=== PATIENT | male | born 1955 | race American Indian/Alaskan Native ===

== ENCOUNTER 2024-08-19 08:03 | Inpatient (IN) | payer BC, OTHER ==
[2024-08-19] VITALS (20 sets, daily range): BP systolic 103–127; BP diastolic 62–88
[~2024-08-19] VITALS: Ht 170.2 cm; Wt 63.1 kg
[~2024-08-19 08:03] MED LIST: ASPIRIN EC81 MG PO; GLIPIZIDE ER10 MG PO; GLUCOPHAGE1000 MG PO; LISINOPRIL10 MG PO; OMEGA-31000 MG PO; VITAMIN D350 MC3 SUB-Q
[2024-08-19] MEDS ORDERED: IBUPROFEN600 MG PO (08:09)
[2024-08-19] MEDS ORDERED: dilTIAZem HCL 25 MG/5 ML VIAL IV ONE (08:15)
[2024-08-19] MEDS ORDERED: DILTIAZEM HCl/D5W 125 ML IV SCH (08:15)
[2024-08-19 08:20] LABS: HEMOGLOBIN 11.7 g/dL (12.0-18.0); MCH 25.6 (27-36)
[2024-08-19 08:23] LABS: HEMATOCRIT 35.5 % (35.0-50.0); MCHC 32.8 g/dl (30-36); PLATELET COUNT 366 K/uL (140-440); RBC 4.56 M/ul (4.3-5.7); RDW 13.6 (10.5-15.0)
[2024-08-19 08:36] LABS: LYMPHOCYTES, MANUAL DIFF 5; NEUTROPHILS, MANUAL DIFF 95
[2024-08-19 08:38] LABS: ALBUMIN 1.7 g/dL (3.4-5.0); ALBUMIN/GLOBULIN RATIO 0.29 (1.1-2.4); ANION GAP 15.9 (7-21); BILIRUBIN, TOTAL 0.6 ng/dL (0.2-1.0); BUN/CREATININE RATIO 42.65 (6.0-28.6); CALCIUM 8.6 mg/dL (8.5-10.1); CREATININE, SERUM 1.43 mg/dL (0.70-1.30); POTASSIUM 3.9 mmol/L (3.5-5.1); PROTEIN, TOTAL 7.5 g/dL (6.4-8.2)
[2024-08-19] MEDS ORDERED: CEFEPIME HCL/D5W 2 GM/100 ML PIGGYBACK IV ONE (09:45)
[2024-08-19] MEDS ORDERED: GABAPENTIN100 MG PO (09:56)
[2024-08-19] MEDS ORDERED: ROSUVASTATIN CAL5 MG PO (09:57)
[2024-08-19] MEDS ORDERED: METFORMIN HCL500 M1 PO (09:57)
[2024-08-19] MEDS ORDERED: DEXTROSE 50% 50 ML SYR IV PRN ×2 (10:30)
[2024-08-19] MEDS ORDERED: ondansetron HCL 4 MG/2 ML VIAL IV PRN (10:30)
[2024-08-19] MEDS ORDERED: IBLOOD GLUCOSE TEST STRIP 1 EA TEST XX PRN (10:30)
[2024-08-19] MEDS ORDERED: ACETAMINOPHEN 325 MG TAB PO PRN (10:30)
[2024-08-19] MEDS ORDERED: DEXTROSE 5% 1,000 ML IV PRN (10:30)
[2024-08-19] MEDS ORDERED: SODIUM CHLORIDE 0.9% 1,000 ML IV SCH (10:30)
[2024-08-19] MEDS ORDERED: bisacodyL 10 MG SUPP PR PRN (10:30)
[2024-08-19] MEDS ORDERED: GLUCAGON,HUMAN RECOMBINANT 1 MG/ML VIAL SUB-Q PRN (10:30)
--- NOTE | 2024-08-19 10:51 | NUR ---
68 YR OLD MALE PATIENT ADMITTED TO CCU FROM ER VIA STRETCHER WITH DX OF AFIB RVR, DIABETIC FOOT ULCER. HX OF DIABETES. PATIENT HAS BEEN ILL FOR AT LEAST THE PAST COUPLE OF WEEKS. STATES HE REALL HASN'T FEEL WELL SINCE MID . UPON ADMIT TO CCU PATIENT IS ALERT AND ORIENTED. FOLLOWING COMMANDS W/O DELAY. MONITOR SHOWS NSR. CARDIZEM ON HOLD FOR NOW. ADMISSION PROCESS STARTED. FAMILY MEMBERS ARE IN ROOM.
--- NOTE | 2024-08-19 11:00 | NUR ---
ACCUCHECK-270. PATIENT SAID HE HAS NOT BEEN ROUTINLY CHECKING HIS BLOOD SUGARS. C/O PAIN IN LEFT FOOT, RATES 9/10. STATES THIS IS HOW THE PAIN HAS BEEN AT HOME. HE SAID HE HAS BEEN TAKING MOTRIN AND TYLENOL. IVF INFUSING AT 100 ML/HR. CARDIZEM REMAINS ON HOLD. IS IN NSR.
[2024-08-19] MEDS ORDERED: INSULIN LISPRO 100 UNIT/ML ML SUB-Q SCH (12:00)
[2024-08-19] MEDS ORDERED: PHARMACY RENAL DOSE ADJUSTMENT 1 DOSE MISC PO SCH (12:00)
[2024-08-19] MEDS ORDERED: IBLOOD GLUCOSE TEST STRIP 1 EA TEST VI SCH (12:00)
--- NOTE | 2024-08-19 12:00 | NUR ---
SITTING UP IN BED FOR LUNCH. DENIES NAUSEA. REGULAR INSULIN 7 UNITS SQ GIVEN.
--- NOTE | 2024-08-19 12:30 | NUR ---
TOOK LUNCH WELL. STATES HE DOES FEEL BETTER NOW. FAMILY REMAIN IN ROOM. PATEINT RESTING WITH HOB ELEVATED. IS W/O C/O.
--- NOTE | 2024-08-19 12:50 | NUR ---
MONITOR SHOW NSR TO AFIB HR 110-128. CARDIZEM GTT RESTARTED AT 5 MG/HR. DENIES CHEST PAIN OR INCREASE SHORTNESS OF BREATH.
--- NOTE | 2024-08-19 13:15 | NUR ---
CARDIZEM GTT INCREASED TO 10 MG/HR. REMAINS IN AFIB RVR.
--- NOTE | 2024-08-19 13:50 | NUR ---
MONITOR TONY NSR, CARDIZEM GTT AT TO 5 MG HR.
--- NOTE | 2024-08-19 13:56 | NUR ---
RESTING NOW. CARDIZEM GTT INFUSING AT 5 MG/HR. NOW IN NSR.
[2024-08-19] MEDS ORDERED: HYDROCODONE/ACETA 5/325 TAB PO PRN (15:15)
[2024-08-19] MEDS ORDERED: CEFEPIME HCL/D5W 1 GM/100 ML PIGGYBACK IV SCH (15:30)
[2024-08-19 15:45] LABS: TSH, 3RD GENERATION 1.191 uIU/mL (0.358-3.740)
--- NOTE | 2024-08-19 16:00 | NUR ---
ORDERS RECIEVED FOR STAT MRI OF LEFT FOOT. TO MRI VIA MRI STRETCHER. WARP TYING MACHINE TENDER AND RN WITH PATIENT.
[2024-08-19] MEDS ORDERED: LANTUS SOL100 UNIT/1 SUB-Q (16:34)
--- NOTE | 2024-08-19 16:50 | NUR ---
Spoke with pt and his and two sisters. Pt was unable to answer questions correctly. Pt stating he is doing well and walks without problems. Family are shaking their heads, "no". At this point I asked pt if it is ok if a speak with his and sisters and he agrees. Per , pt has had a blister on is foot for several weeks. He would not admit it was worsening. She made attempts to bring him to the hospital over the last week and he refused. Room is foul smelling due to the wound. , today called the ambulance. Per , pt has not been able to walk or care for self in a week. Sisters are in agreement. They state they all have diabetes. Sisters state they follow plan for diabetes but pts does not. Family want to discuss placement to a SNF on discharge of this pt. Let them know he is going for an MRI and this will tell us more about discharge. Family do not want to use the straight line edger in [facility]. They would like to use one in [place] the rest of the family use if needed. Per their house is not set up for disability. They do not have hand rails and they have steps. When pt was walking he used the khanna to hold onto. He does not have any DME. and pt are both working and she denies any finacial issues. DC plan at this time is pending. I will fu with them tomorrow. I texted Dr. Sarabia, if pt needs podiatry, the family are refusing [place] organizational development specialist. He replied, they are calling Dr. Renteria from ortho for an emergency consult.
--- NOTE | 2024-08-19 17:00 | NUR ---
RETURN TO ROOM 130. ORDERS RECEIVED TO CONSULT DR BOYLE. PRISCILA 281. ORDERS RECIEVED TO GIVE HALF TO SS DOSE.
[2024-08-19] MEDS ORDERED: HYDROCHLOROTHIA25 MG PO (17:04)
[2024-08-19] MEDS ORDERED: SALINE NOSE SPR45 ML NAS (17:09)
[2024-08-19] MEDS ORDERED: KETOROLAC TROMETHAMINE 30 MG/ML VIAL ONE (18:05)
[2024-08-19] MEDS ORDERED: propofoL 200 MG/20 ML VIAL ONE ×2 (18:05→18:50)
[2024-08-19] MEDS ORDERED: METOCLOPRAMIDE HCL 10 MG/2 ML SDV ONE (18:05)
[2024-08-19] MEDS ORDERED: LACTATED RINGER'S 1,000 ML IV ONE ×3 (18:05→19:14)
[2024-08-19] MEDS ORDERED: fentaNYL citrate 100 MCG/2 ML VIAL ONE (18:05)
[2024-08-19] MEDS ORDERED: ROCURONIUM BROMIDE 50 MG/5 ML SYR ONE (18:05)
[2024-08-19] MEDS ORDERED: SUGAMMADEX SODIUM 200 MG/2 ML ML ONE (18:05)
[2024-08-19] MEDS ORDERED: DEXAMETHASONE SOD PHOS 4 MG/ML VIAL ONE (18:05)
[2024-08-19] MEDS ORDERED: MIDAZOLAM HCL 2 MG/2 ML VIAL ONE (18:05)
[2024-08-19] MEDS ORDERED: ondansetron HCL 4 MG/2 ML VIAL ONE (18:05)
[2024-08-19] MEDS ORDERED: SUCCINYLCHOLINE IN 0.9% NACL 200 MG/10 ML SYRINGE ONE (18:05)
[2024-08-19] MEDS ORDERED: FAMOTIDINE 20 MG/ 2 ML VIAL ONE (18:06)
[2024-08-19] MEDS ORDERED: LIDOCAINE HCL 4% 5 ML AMP ONE (18:06)
[2024-08-19] MEDS ORDERED: CloNIDine HCl/Pf 1,000 MCG/10 ML VIAL ONE (18:07)
[2024-08-19] MEDS ORDERED: LIDOCAINE HCL 2% 5 ML SDV ONE (18:07)
[2024-08-19] MEDS ORDERED: BUPIVACAINE HCL 0.5% 30 ML VIAL ONE (18:07)
[2024-08-19] MEDS ORDERED: BUPIVACAINE 0.75% IN DEXTROSE 2 ML AMP ONE (18:07)
[2024-08-19 18:17] LABS: ABO O; RH POSITIVE
[2024-08-19] MEDS ORDERED: LIDOCAINE 2% VISCOUS 6 ML SYR ONE (18:18)
--- NOTE | 2024-08-19 18:40 | NUR ---
TO OR VIA BED. LR TKO ON STRAIGHT TUBING HANGING. CEFEPIME 1 GRAM INFUSING.
[2024-08-19] MEDS ORDERED: DIGOXIN 500 MCG/2 ML AMP ONE (18:50)
[2024-08-19] MEDS ORDERED: HYDROCORTISONE SOD SUCCINATE 100 MG/2 ML VIAL ONE (18:50)
[2024-08-19] MEDS ORDERED: OXYCODONE HCL 5 MG TAB PO PRN (19:00)
[2024-08-19 19:03] LABS: ABO O; RH POSITIVE
[2024-08-19 19:04] LABS: ANTIBODY SCREEN NEGATIVE; IS CROSSMATCH COMPATIBLE
[2024-08-19] MEDS ORDERED: ePHEDrine sulfate 50 MG/ML AMP ONE (19:17)
--- NOTE | 2024-08-19 19:30 | NUR ---
REPORT RECEIVED FROM DANIELLE ARANGO. PATIENT IN RECOVERY.
--- NOTE | 2024-08-19 19:30 | NUR ---
REPORT TO NEXT SHIFT.
--- NOTE | 2024-08-19 19:48 | NUR ---
08/19/241947 Chikis Thrasher 1928: PT ARRIVES TO CCU ROOM 130 FOR PACU RECOVERY. HE IS NOT RESPONSIVE TO ANY STIMULI. HE HAS AN ORAL AIRWAY IN PLACE WITH AN ACTIVE JAW THRUST BEING PERFORMED BY UNLOADER, PASSED OFF TO CCU RN. JADIEL 1933: PT REMOVES UNRESPONSIVE TO STIMULI. JAW THRUST REMAINS IN PLACE WELL ORAL AIRWAY. JADIEL 1938: UNLOADER PREPS PT FOR POST OPERATIVE BLOCKS. JAW THRUST STILL IN PLACE. HIS RR HAS SLOWED. PT IS BREATING VERY SLOW AND SHALLOW.
--- NOTE | 2024-08-19 20:27 | NUR ---
REPORT RECEIVED FROM MACHINE SPRING FORMER, SEN. PATIENT IS RESTING IN BED, LETHARGIC BUT OPENS EYES TO NAME AND ANSWERS QUESTIONS. CONTINUES TO HAVE INTERMITTENT APNEIC PERIODS. REVIEWED WITH DR. ARMSTRONG, ORDER RECEIVED FOR BIPAP IF NEEDED. RT NOTIFIED. AT THIS TIME, RN AT BEDSIDE MONITORING PATIENT. PATIENT WAKES AND ASKS QUESTIONS ABOUT SURGERY; REQUESTED TO LOOK AT RLE. ASSISTED WITH VIEWING HIS LEG, EXPLAINED THAT THE DRESSING NEEDS TO STAY IN PLACE BUT PATIENT STATED, "IT LOOKS GOOD" AND ASKS WHEN HE WILL GET A PROSTHETIC. REVIEWED POC AND UPCOMING WASH OUT PROCEDURE. PATIENT VERBALIZED UNDERSTANDING. CALL LIGHT IN REACH. BED EXIT ALARM ON FOR SAFETY.
[2024-08-19] MEDS ORDERED: MELATONIN 3 MG TAB PO PRN (21:00)
[2024-08-19] MEDS ORDERED: GABAPENTIN 100 MG CAP PO SCH (21:00)
[2024-08-19] MEDS ORDERED: INSULIN GLARGINE-YFGN 100 UNIT/ML ML SUB-Q SCH (21:00)
[2024-08-19] MEDS ORDERED: ATORVASTATIN 10 MG TAB PO SCH (21:00)
[2024-08-19] MEDS ORDERED: SENNOSIDES 1 TAB PO SCH (21:00)
--- NOTE | 2024-08-19 21:22 | NUR ---
PO HS MEDICATIONS HELD AT THIS TIME. PATIENT REMAINS DROWSY POST-OPERATIVELY.
--- NOTE | 2024-08-19 22:05 | NUR ---
IV ABX INFUSING. O2 SAT 100% ON 3L NC. DECREASED FLOW TO 2L. PATIENT ROUSES TO NAME BUT EASILY FALLS ASLEEP. DENIES PAIN AT THIS TIME. BED EXIT ALARM ON FOR SAFETY.
--- NOTE | 2024-08-19 23:44 | NUR ---
ROUNDING ON PATIENT, HE IS ALERT ASKED FOR TV REMOTE, ADJUSTED HIS PILLOW UNDER LEFT STUMP POST OP, HE DOES NOT VERBALIZE ANY PAIN OR NAUSEA, HIS V/S ARE STABLE, IN NSR. NO DRAINAGE NOTED ON ZEINA WRAP AT THIS TIME.
[2024-08-20] VITALS (11 sets, daily range): BP systolic 94–120; BP diastolic 60–69
--- NOTE | 2024-08-20 00:18 | NUR ---
PATIENT WAKES EASILY TO NAME AND OPENS EYES. ABLE TO STAY AWAKE DURING CONVERSATION. TOOK SIPS OF WATER AND TOLERATED WELL. ADMINISTERED HS MEDICATIONS. PATIENT C/O 8/10 ACHING PAIN. MEDICATED FOR PAIN PER EMAR. DOPPLER PULSE AUSCULATED ON LEFT LEG AND R PEDAL PULSE. RIGHT POST TIBIAL PULSE PALPATED BUT WEAK. DRESSING REMAINS CDI. PATIENT DENIES OTHER NEEDS OR CONCERNS. CALL LIGHT IN REACH WITH BED EXIT ALARM ON.
--- NOTE | 2024-08-20 01:30 | NUR ---
PATIENT ASSISTED WITH REPOSITIONING IN BED. WISHES TO SLEEP ON HIS STOMACH. EDUCATION PROVIDED ON TELEMETRY MONITORING. REPORTS PAIN IN STARTING TO IMPROVE AFTER PO MEDICATION. WARM BLANKET PROVIDED. DENIES OTHER NEEDS AT THIS TIME.
--- NOTE | 2024-08-20 02:10 | NUR ---
PATIENT WAKES TO DOPE EDGER IN ROOM. NEW BAG IVF HUNG. COTTER CATHETER REMAINS PATENT; DRAINING CLEAR YELLOW URINE. PATIENT REPORTS PAIN MEDICATION HELPED. CURRENTLY RATING PAIN AT 4/10 WHICH IS TOLERABLE AT THIS TIME. DENIES NEED FOR FURTHER PAIN INTERVENTION. EDUCATION PROVIDED ON NOTIFYING NURSING STAFF ON ANY INCREASE IN PAIN. DENIES OTHER NEEDS OR CONCERNS AT THIS TIME. CALL LIGHT IN REACH. DRESSING ON LLE REMAINS CDI.
[2024-08-20 05:23] LABS: BASOPHILS 0.2 % (0-2); HEMATOCRIT 24.4 % (35.0-50.0); HEMOGLOBIN 8.1 g/dL (12.0-18.0); LYMPHOCYTES 3.2 % (24-44); MCH 25.8 (27-36); MCHC 33.1 g/dl (30-36); MONOCYTES 3.9 % (0-12); NEUTROPHILS 92.7 % (39-80); PLATELET COUNT 272 K/uL (140-440); RBC 3.13 M/ul (4.3-5.7); RDW 13.7 (10.5-15.0)
[2024-08-20 05:33] LABS: ANION GAP 9.4 (7-21); BUN/CREATININE RATIO 51.32 (6.0-28.6); CALCIUM 7.9 mg/dL (8.5-10.1); CREATININE, SERUM 1.13 mg/dL (0.70-1.30); POTASSIUM 4.4 mmol/L (3.5-5.1)
[2024-08-20 05:38] LABS: SMEAR REVIEW BLOOD SEE COMMENTS
--- NOTE | 2024-08-20 06:11 | NUR ---
PATIENT WOKE EASILY TO THIS RN IN ROOM. INITIALLY DENIED PAIN BUT HE WOKE MORE AND MOVED AROUND, HE ENDORSED 5/10 ACHING PAIN IN HIS LLE. MEDICATED WITH OXYCODONE PER EMAR. PATIENT STARED AT LEG. ASKED HOW HE IS FEELING ABOUT IT, PATIENT SEEMS TO BE IN GOOD SPIRITS AND ACCEPTING AT THIS TIME. IV ABX INFUSING. DENIES OTHER NEEDS OR CONCERNS AT THIS TIME.
--- NOTE | 2024-08-20 07:18 | OR ---
[facility] [address] [place] [address] Signed DATE OF OPERATION: 08/19/2024 SURGEON: Sarah Renteria MD PREOPERATIVE DIAGNOSIS: Left foot gangrene with sepsis. POSTOPERATIVE DIAGNOSIS: Left foot gangrene with sepsis. PROCEDURE PERFORMED: Left below-knee amputation, alex. COPY ROOM TECHNICIAN: Florence Vaughn PA-C. Florence was present and critical for all portions of procedure. ANESTHESIA: Spinal. BLOOD LOSS: 200 mL. TOURNIQUET TIME: Zero. SPECIMEN: Lower extremity was sent to Pathology. BRIEF HISTORY: Dayami is a 68-year-old gentleman with gangrene to his foot after treating it with a bandage and some sort of cream that appears to have burned the skin. [place] [address] and relatively nontoxic. However, I felt he was going get sick fairly quickly. We discussed an emergent alex BKA. He elected to proceed once the consent was obtained, he was taken to the operating room after adequate anesthesia was placed on operating room table. All downside pressure points were well padded. A well-padded proximal thigh tourniquet was placed. The foot was then covered with a tourniquet bag and the leg was prepped and draped in a standard sterile fashion. A standard BK amputation was marked out on the skin with a posterior flap. The skin was incised circumferentially and deep dissection was taken down around the tibia and the Electronically Signed By: SARAH RENTERIA MD 08/20/24 0718 PATIENT NAME: DAYAMI ROMERO OPERATIVE REPORT DATE OF : 59 REPORT #: [id number] PHYSICIAN: SARAH RENTERIA MD PCP: JOYCE BLACKWELL PAC REPORT IS CONFIDENTIAL AND NOT TO BE RELEASED WITHOUT AUTHORIZATION [facility] [address], [place] [address] Signed fibula. Both were cut with the soft and using the amputation knife. The lower extremity was removed with all blood vessels being clamped as we went. Once this was completed, the lower extremity was passed off the table. The bleeding was then controlled using a combination of clamps and cautery. We then used individual 2-0 silk ties to tie off all of the bleeders throughout. The bleeding was completely stopped at this portion of the procedure. We then irrigated the entire stump, soft tissue and bone with one bottle of Surgiphor followed by 2 L of normal saline. Again, the stump was inspected for bleeding and no further bleeders were found. No areas of necrosis or infection were noted. The stump was then packed with saline soaked Kerlix sponges followed by dry sponges. This was then covered with ABDs, Kerlix, roller gauze and an Glen wrap. He tolerated the procedure well. All sponge, needle, and instrument counts were correct. Sarah Renteria MD BA/ANSON /[id number] Copies: ~ Electronically Signed By: SARAH RENTERIA MD 08/20/24 0718 PATIENT NAME: DAYAMI ROMERO OPERATIVE REPORT DATE OF : 59 REPORT #: [id number] PHYSICIAN: SARAH RENTERIA MD PCP: JOYCE BLACKWELL PAC REPORT IS CONFIDENTIAL AND NOT TO BE RELEASED WITHOUT AUTHORIZATION
--- NOTE | 2024-08-20 08:39 | NUR ---
PATIENT IS LYING IN BED WITH WITH HOB ELEVATED. PATIENT IS WATCHING TV WITH HIS BREAKFAST TRAY SET UP IN FRONT OF THE PATIENT. PATIENT WITH A VISITOR IN THE ROOM AT THIS TIME. 0800 AND 0900 MEDICATIONS ADMINISTERED PER THE EMAR. VITAL SIGNS TAKEN AND DOCUMENTED IN THE CHART. BLINDS ARE OPEN. PATIENT STATED NO FURTHER NEEDS AT THIS TIME. CALL LIGHT AND PERSONAL BELONGINGS ARE WITHIN REACH.
[2024-08-20] MEDS ORDERED: FLU VACC TS2024(65UP)/MF59C/PF 1 EACH SYR IM SCH (09:00)
--- NOTE | 2024-08-20 09:17 | NUR ---
Assessment complete. Patient sitting up in bed A+O, visitor at bedside. States no pain at this time. HRR, LSC, Bowel tones active. CMS intact. Dressing to LBKA C/D/I, full ROM noted. IVF infusing WNL. Updated on POC for day, pt agreeable. Call light in reach.
--- NOTE | 2024-08-20 09:28 | NUR ---
UR CLINICAL REVIEW: [facility]-MEETS INPT FOR JOSE:AMPUTATION ABOVE OR BELOW KNEE GUIDELINE AND ATRIAL FIBRILLATION GUIDELINE [facility] PPO INPT 08/19/24 @ 1031 ORDER MATCHES REG WILL SEND CLINICALS VIA RIGHTFAX FOR AUTH IF REQUESTED. PLAN FOR SNF AT [place]. 08/22/24
--- NOTE | 2024-08-20 09:43 | NUR ---
VISITED DURING SPIRITUAL CARE ROUNDS. PT EATING BREAKFAST. WILL RETURN CIRCUMSTANCES ALLOW.
--- NOTE | 2024-08-20 09:50 | NUR ---
Noted HR 35, patient asymptomatic with the bradycardia, updated MD who gives verbal order for stat EKG. Patient assessed with no needs at this time
--- NOTE | 2024-08-20 10:10 | NUR ---
RN GAVE PATIENT TWO WARM BLANKETS AT THIS TIME. RN NOTIFIED OF THE PREVIOUS TEMPERATURE.
--- NOTE | 2024-08-20 11:20 | NUR ---
Spoke with Basim and his . Other family members in room. Attempted to discuss plan for dc. 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 and niece attempted to interject and he would not let them speak. He is agreeable to a list of SNFs, but feels he will need to work 50% of the time. I asked him to please discuss this with the DrSierra as I do not feel he will be released back to work at this time. spoke to me and asked I send the chart to [facility]. Family discussed placement yesterday and again today. They feel this would work best for them.
--- NOTE | 2024-08-20 11:36 | NUR ---
LAB CALLED TO NOTIFY RN ABOUT DUPLICATE LAB ORDERS
--- NOTE | 2024-08-20 12:35 | NUR ---
VISITED PT AND FAMILY TO OBTAIN SIGNATURE ON CONSENT TO STORE AMPUTATED SPECIMENS. PT TALKING WITH ABOUT RETURNING TO WORK. QUIET AND TEARFUL, SUPPORTED BY FAMILY MEMBERS IN ROOM. STATED SHE WAS "IN SHOCK" AND INDICATED THIS WAS NOT WHAT SHE HAD EXPECTED WHEN SHE SUMMONED MEDICAL ASSISTANCE YESTERDAY. [employer] EV[employer] PLANNER EXPLAINED STORAGE POLICY AND OBTAINED SIGNATURE. COPY OF CONSENT PLACED IN CHART. SECOND COPY WILL BE DELIVERED TO [facility] SOON POSSIBLE. SPECIAL EVENTS PLANNER PROVIDED SUPPORTIVE PRESENCE, PRAYER. NIECE INDICATED BURIAL WOULD BE DESIRED, INDICATED UNDERSTANDING OF TIME FRAME. EXPRESSED GRATITUDE FOR VISIT.
--- NOTE | 2024-08-20 14:05 | NUR ---
IV ABX infusing per order. Family and wharfmaster in room for prayer. Patient has no needs at this time, call light in reach.
--- NOTE | 2024-08-20 14:40 | EKG ---
[facility] [address] [place] [address] Signed Atrial fibrillation with rapid ventricular response Abnormal ECG No previous ECGs available Confirmed by Sterling Armstrong MD ([id number]) on 08/20/2024 2:40:00 PM Electronically Signed By: STERLING ARMSTRONG DO 08/20/24 1440 PATIENT NAME: DAYAMI ROMERO Electrocardiogram DATE OF : 59 PHYSICIAN: STERLING ARMSTRONG DO REPORT #: [id number] REPORT IS CONFIDENTIAL AND NOT TO BE RELEASED WITHOUT AUTHORIZATION
--- NOTE | 2024-08-20 14:41 | EKG ---
[facility] [address] [facility] [place] [address] Signed Sinus bradycardia with premature atrial complexes Otherwise normal ECG No previous ECGs available Confirmed by Noman Armstrong MD ([id number]) on 08/20/2024 2:41:26 PM Electronically Signed By: NOMAN ARMSTRONG DO 08/20/24 1441 PATIENT NAME: [place] ROJO Electrocardiogram DATE OF : 59 PHYSICIAN: NOMAN ARMSTRONG DO REPORT #: [id number] REPORT IS CONFIDENTIAL AND NOT TO BE RELEASED WITHOUT AUTHORIZATION
--- NOTE | 2024-08-20 14:41 | EKG ---
[facility] [address] [place] [address] Signed Normal sinus rhythm Normal ECG When compared with ECG of 19-AUG-2024 08:05, (Unconfirmed) Sinus rhythm has replaced Atrial fibrillation Vent. rate has decreased BY 93 BPM Confirmed by Sterling Armstrong MD ([id number]) on 08/20/2024 2:41:05 PM Electronically Signed By: STERLING ARMSTRONG DO 08/20/24 1441 PATIENT NAME: DAYAMI ROMERO Electrocardiogram DATE OF : 59 PHYSICIAN: STERLING ARMSTRONG DO REPORT #: [id number] REPORT IS CONFIDENTIAL AND NOT TO BE RELEASED WITHOUT AUTHORIZATION
--- NOTE | 2024-08-20 15:00 | NUR ---
I returned and spoke with Basim. He states he has not made up his mind. This may take 3 days. I encouraged him to speak with his Dr. He reviewed the list of SNFs I gave him, but is not sure what he wants. Will FU tomorrow.
--- NOTE | 2024-08-20 16:30 | NUR ---
Patient up to chair with FWW and 2PA after full bed bath with shampoo, velazquez care and linen change. patient tolerates well and VSS. Room tidied and CBG checked. Dinner tray delivered and patient states no needs, IVF infusing WNL
[2024-08-20] MEDS ORDERED: metroNIDAZOLE 250 MG TAB PO SCH (17:00)
--- NOTE | 2024-08-20 17:30 | NUR ---
Patient calls and states he "vomited", moderate amount emesis on dinner tray and bedside table, patient states feels better now and has no needs at this time, denies PRN medications for nausea. Cleaned up and patient stable with no requests
--- NOTE | 2024-08-20 18:26 | NUR ---
Patient back to bed with 2PA, with FWW, states no nausea at this time, HRR, temperature only 96.5 after multiple attempts, patient not cold or hot, all assessments are benign with regards to temperature management. IV pumps cleared and velazquez drained.
--- NOTE | 2024-08-20 20:00 | NUR ---
PATIENT RESTING IN BED, EYES CLOSED RESPIRATIONS 16/MIN, NO DISTRESS NOTED. THIS RN INTO ROOM TO ASSESS PATIENT, ELEVATED LEFT POST OP STUMP ON PILLOW. PATIENT REPORTS NO NEEDS AT THIS TIME, HE REPORTS NO PAIN AT REST, NO NAUSEA. THIS RN REMINDED PATIENT THAT HE WILL NEED TO BE NOTHING BY MOUTH ATFER MIDNIGHT, AND PLAC OF CARE FOR TOMORROW. ALSO HIS DRESSING IS C/D/I.
[2024-08-20] MEDS ORDERED: INSULIN GLARGINE-YFGN 100 UNIT/ML ML SUB-Q SCH (21:00)
--- NOTE | 2024-08-20 21:20 | NUR ---
ROUNDING ON PATIENT WITH HS MED PASS, HE IS RESTING IN BED, EYES CLOSED RR 16/MIN, NO DISTRESS NOTED, ALERT TO NAME. PATIENT REMINDED ABOUT MIDNIGHT NPO STATUS, HE REPORTS NO NAUSEA, ONLY PAIN IF HE MOVES AROUND, TYLENOL PRN ADMINISTERED TO MAINTAIN BASELINE PAIN COVERAGE. HE HAS NO FURTHER REQUESTS OR CONCERNS AT THIS TIME. HE REMAINS AFEBRILE.
--- NOTE | 2024-08-20 22:30 | NUR ---
ROUNDING ON PATIENT WITH SCHEDULED ABX TO INFUSE. HE IS AWAKE AND ASKS FOR ASSISTANCE TO TURN TO HIS SIDE SLIGHTLY, ASSISSTED PATIENT AND THEN ELEVATED LEFT STUMP ON PILLOW. PATIENT ASKED WHAT TIME THE SURGERY IS PLANNED FOR THIS RN SAID, "I WILL CHECK THE SCHEDULE", PATIENT INFORMED THAT PER THE SCHEDULE IT IS PLANNED FOR 1100 AM, AND THE SURGERY CREW WILL LIKELY COME TO GET YOU FROM YOUR ROOM BY 1000 AM, PROVIDED SURGERIES STAY ON SCHEDULE. PATIENT THEN ASKED IF HE WILL GO HOME AFTER SURGERY, THIS RN EXPLAINED THAT AND NOW WILL MAVE TO MAKE THOSE DECISIONS, BUT THAT THIS RN FEELS IT IS UNLIKELY THAT YOU WILL DISCHARGE TOMORROW, PATIENT THEN SAID, "OK, AT LEAST ANOTHER DAY PROBABLY."
[2024-08-21] VITALS (11 sets, daily range): BP systolic 112–149; BP diastolic 62–662
--- NOTE | 2024-08-21 02:11 | NUR ---
PATIENT RESTING IN SNORING NOTED, PATIENT THEN ALERT TO THIS RN AT BEDSIDE, HE HAS HIS LEFT LEG STUMP BKA OFF THE ELEVATION PILLOW, HE IS ALERT TP RN IN ROOM, REPOSITIONED LEFT BKA STUMP BACK ON PILLOW PATIENT HAS NO REQUESTS AT THIS TIME, REPORTS NO PAIN AT REST.
--- NOTE | 2024-08-21 03:12 | NUR ---
ROUNDING IN PATIENT ROOM, REPOSITIONED, PATIENT ALERT AND ORIENTED, HE ASKED FOR MORE BLANKETS TO BE PLACED, NO REPORTS OF PAIN OR NAUSEA. DRESSING AT LEFT BKA STUMP IS CDI.
[2024-08-21 05:14] LABS: HEMATOCRIT 27.7 % (35.0-50.0); HEMOGLOBIN 9.2 g/dL (12.0-18.0); MCH 25.8 (27-36); MCHC 33.1 g/dl (30-36); PLATELET COUNT 308 K/uL (140-440); RBC 3.56 M/ul (4.3-5.7); RDW 14.1 (10.5-15.0)
[2024-08-21 05:23] LABS: ANION GAP 4.3 (7-21); CALCIUM 7.9 mg/dL (8.5-10.1); POTASSIUM 3.3 mmol/L (3.5-5.1)
[2024-08-21 05:27] LABS: BANDS, MANUAL DIFF 3; LYMPHOCYTES, MANUAL DIFF 8; MONOCYTES, MANUAL DIFF 6; NEUTROPHILS, MANUAL DIFF 83
--- NOTE | 2024-08-21 06:28 | NUR ---
PATIENT AM ASSESSMENT COMPLETE, NO NEW CONCERNS, DRESSING TO LEFT BKA STUMP IS CDI, ELEVATED ON PILLOW ICE PACK ALONG SIDE. HE HAS HAD NO NAUSEA OVER THIS SHIFT, WAS ADMINISTERED TYLENOL PRN X2 FOR REPORT OF "MILD PAIN" HE HAS BEEN ALERT AND ORIENTED OVER SHIFT, V/S STABLE, AFEBRILE, PRODUCED 1300ML URINE OUT IN COTTER CATHETER.
--- NOTE | 2024-08-21 07:45 | NUR ---
REPORT RECIEVED FORM SPECIFICATION CONSULTANT RN. PATIENT RESTING IN BED WITH LEG ELEVATED AND ICE PACKS. PATIENT CALLS APPROPRIATELY. PATIENT IS SCHEDULED TO GO BACK TO SURGERY THIS MORNING.
[2024-08-21] MEDS ORDERED: POTASSIUM CHLORIDE 40 MEQ,LIDOCAINE HCL 1% 40 MG in DEXTROSE 5% 250 ML IV ONE (08:30)
--- NOTE | 2024-08-21 08:50 | NUR ---
PATIENT CHLORHEXIDINE BATH COMPLETED AND PREPPED FOR PROCEDURE.
[2024-08-21] MEDS ORDERED: propofoL 200 MG/20 ML VIAL ONE (08:56)
[2024-08-21] MEDS ORDERED: Ropivacaine HCl 0.5% 30 ML VIAL ONE (08:56)
[2024-08-21] MEDS ORDERED: DEXAMETHASONE SOD PHOS 4 MG/ML VIAL ONE (08:56)
[2024-08-21] MEDS ORDERED: LIDOCAINE HCL 2% 20 MG/ML VIAL INJ ONE (08:56)
[2024-08-21] MEDS ORDERED: ondansetron HCL 4 MG/2 ML VIAL ONE (08:56)
--- NOTE | 2024-08-21 09:13 | NUR ---
PT GONE FOR PROCEDURE. PROVIDED PRAYER.
--- NOTE | 2024-08-21 09:16 | NUR ---
TEMI CHARGE OR NURSE TOOK PATIENT TO DAY SURGERY. BLOOD SUGAR CHECKED PRIOR TO PATIENT LEAVING. INSULIN HELD D/T BEING NPO AND GOING TO SURGERY. PATIENT HAS LR HANGING. PO MEDICATIOSN HELD AT THIS TIME D/T NPO STATUS. PER FLEXIBLE BABYSITTER SHE DID NOT WANT THE POTASSIUM BAG FOR PATIENTS POTASSIUM OF 3.3. NEW ORDER PLACED TO CHECK MAGNESIUM LABS PER MD THIS AM. PATIENTS MILIND CALLED WITH NO ANSWER.
[2024-08-21] MEDS ORDERED: ePHEDrine sulfate 50 MG/ML AMP ONE (10:24)
[2024-08-21] MEDS ORDERED: ondansetron HCL 4 MG/2 ML VIAL IV PRN (10:45)
[2024-08-21] MEDS ORDERED: droPERidol 5 MG/2 ML VIAL IV PRN (10:45)
[2024-08-21] MEDS ORDERED: PROCHLORPERAZINE EDISYLATE 10 MG/2 ML VIAL IV PRN (10:45)
[2024-08-21] MEDS ORDERED: IBLOOD GLUCOSE TEST STRIP 1 EA TEST VI PRN (10:45)
[2024-08-21] MEDS ORDERED: fentaNYL citrate 50 MCG/ML SDV IV PRN (10:45)
[2024-08-21] MEDS ORDERED: HYDROmorphone HCL 1 MG/ML SYR IV PRN (10:45)
[2024-08-21] MEDS ORDERED: NALOXONE HCL 0.4 MG SYR IV PRN (10:45)
--- NOTE | 2024-08-21 11:25 | NUR ---
PATIENT ARRIVED BACK FROM PROCEDURE WITH SURGERY STAFF AT THE BEDSIDE. PATIENT ASLEEP UPON INITIAL RETURN TO ROOM BUT EASILY AWAKENS TO STIMULUS. REPORT RECIEVED FROM ANESTHESIA.
--- NOTE | 2024-08-21 11:43 | NUR ---
08/21/24 1143 Rebekah,Amalia 1122 PT ARRIVED TO PACU, PT ON 6L VIA MASK. PT WOKE TO TACTILE STIMULI AND PT REORIENTED TO CCU AND DENIES NAUSEA AND PAIN. O2 REMOVED AND CARE TRANSFERED TO CCU RN FROM DANIEL. ALL QUESTIONS ANSWERED AND BED PLUGGED IN AND CALL LIGHT WITHIN REACH.
--- NOTE | 2024-08-21 11:45 | NUR ---
THIS RN TOOK OVER CARE FROM YUVAL SANTOS. PATIENT AWAKE AND TALKING. MD BOYLE IN TO DISCUSS PLAN OF CARE WITH PATIENTS FAMILY AND THEN STOPPED AND UPDATED PATIENT WHEN HE WAS MORE AWAKE. PER MD KEEP LEFT LEG ELEVATED AND TO BE CASEFUL WITH THE ICE. PATIENT HAS BLOCKS IN PLACE FOR PAIN CONTROL. PATIENT CAN RESUME THERAPY WITH PT/OT. PATIENT GIVEN WATER AND TOLERATED WELL.
--- NOTE | 2024-08-21 12:20 | NUR ---
PATIENT TOELRATED WATER WELL. PATIENT NOW HAS JELLO AND BROTH AT THE BEDSDIE. CALL LIGHT IN REACH. PATIENT PO MEDICATIONS GIVEN. PATIENT DENIES ANY NEEDS A TTHIS TIME. FAMILY AT THE BEDSIDE.
--- NOTE | 2024-08-21 13:15 | NUR ---
Pt sleeping, family out of room. Per Rn, pt tolerated surgery well. Discussed with PT if they feel this pt would benefit from IPR, they did not feel he would be able to tolerate 3 hrs of therapy.
--- NOTE | 2024-08-21 13:37 | NUR ---
PATIENT TOLERATED JELLO AND BROTH WELL. PATIENT GIVEN HIS LUNCH TRAY AT THIS TIME. PATIENT SITTING UP IN BED. PATIENT LEG CHECKED AND NO DRAINAGE NOTED TO SITE. LEG ELEVATED ON PILLOW. CALL LIGHT IN REACH. NO OTHER ENEDS AT THIS TIME.
--- NOTE | 2024-08-21 13:53 | NUR ---
Called Oralia at [facility] to confirm she received the chart I faxed at the 's request yesterday. She replied she has left for the day. She will follow up Saturday to review if pt needs placement. Chart faxed to Ginette Santiago.
[2024-08-21] MEDS ORDERED: SEVOFLURANE 250 ML BTL INH ONE (14:21)
--- NOTE | 2024-08-21 15:00 | NUR ---
THIS RN IN TO ASSIST PHYSICAL THERAPY MANAGE CORDS TO GET PATIENT TO THE CHAIR. PATIENT TOLERATED WELL. PATIENT IN CHAIR NOW AND FAMILY AT THE BEDSIDE. PATIENT STILL WORKING ON LUNCH TRAY. CALL LIGHT IN REACH.
--- NOTE | 2024-08-21 15:30 | NUR ---
Notified by Vince from PT. Pt will need a walker. Rx completed and left on Dr. Maira's desk to sign.
--- NOTE | 2024-08-21 15:49 | NUR ---
OT IN TO WORK WITH PATIENT AT THIS TIME.
--- NOTE | 2024-08-21 16:30 | NUR ---
Notified by staff pt has questions. In to speak with pt and has been looking at the facility list. He cont. to look at the penitentiary and residential care. Staff have attempted to explain he will most likely need a SNF. Also insurance does not pay for [facility]. Pt becomes loud stating he wants to go where his brother is living. He is not sure where this is. He believes it is [facility] in [place]. [facility]. Pt is loudly stating his brother negotiated a rousseau and also therapist to come in daily for therapy. I let him know, I know nothing about [facility]. At this point I put a Yellow marker and marked around all the SNFs. I then asked him to speak with his niece that works at the [employer]. I told him [employer] and his insurance do not pay for any placement other than the facilities in the yellow area. If he wants to pay out of pocket he can go to those facilities not marked with yellow. Pt then again stating he has to return to work. I again asked him to speak with the about this.
--- NOTE | 2024-08-21 18:03 | NUR ---
MD QUINN IN TO DISCUSS PLAN OF CARE WITH PATIENT. PATIENT IS GOING TO REVIEW THE SNF OPTIONS THE NEXT FEW DAYS. PATIENT REPORTED HE HAS BEEN HAVING HICCUPS OFF/ON. SEE NEW ORDERS PER MD. PATIENT AGREEABLE TO PLAN OF CARE. PATIENT SITTING IN THE CHAIR AND FAMILY AT THE BEDSIDE.
[2024-08-21] MEDS ORDERED: CALCIUM CARBONATE 500 MG CHEW PO ONE (18:15)
--- NOTE | 2024-08-21 19:00 | NUR ---
PATIENT HAS TRANSFERED FROM CCU TO ROOM 122 MED/SURG AT THIS TIME, REPORT TO THIS RN FROM STEVEN Kenny CCU. PATIENT IS SITTING UP IN RECLINER ALERT AND ORIENTED, HE HAS GUESTS IN ROOM. HE IS TELLING STORIES.
--- NOTE | 2024-08-21 19:09 | NUR ---
PATIENT TRANSFERED TO ROOM 122 VIA CHAIR WITH OFFAL SEPARATOR STAFF. REPORT GIVEN TO DOMINICK SANTOS. ALL PATIENTS BELONGINGS SENT WITH PATIENT. ALL QUESTIONS ANSWERED. PATIENT ON TELE NUMBER 3.
--- NOTE | 2024-08-21 19:30 | NUR ---
ROUNDING, PATIENT REPORTS NO PAIN OR NAUSEA. SURGERY DRESSING TO LEFT BKA CDI.
[2024-08-21] MEDS ORDERED: CALCIUM CARBONATE 500 MG CHEW PO PRN (20:45)
--- NOTE | 2024-08-21 20:45 | NUR ---
PATIENT REQUEST TO RETURN TO BED, TWO PERSON ASSIST WITH FWW TO STAND AND TRANSFER FROM RECLINER TO BED, PATIENT IS NOTED TO BE VERY UNSTEADY, HE IS NOT FOLLOW DIRECTION NOT HOP AND TO USE ARMS AND HEEL/TOE SLIDE RIGHT FOOT TO TURN. PATIENT ALSO ASKED ABOUT HAVING A WHELLCHAIR AND A KNEE SCOOTER FOR TRANSFERS, DISCUSSED WITH PATIENT PHYSICAL THERAPY WILL BE INTO WORK WITH YOU AND HELP DETERMINE THE BEST/SAFEST TRANSFER DEVICE. PATIENT REPORTS HIS LEFT BKA IS STILL NO FEELING. HE IS REPORTING HICCUPS AGAIN AND REQUEST FOR ANOTHER DOSE OF TUMS.
--- NOTE | 2024-08-21 22:30 | NUR ---
ROUNDING, CHECKED DRESSING AT LEFT BKA, REMAINS CDI, PATIENT CONTINUES TO REPORT NO FEELING.
[2024-08-22] VITALS (10 sets, daily range): BP systolic 132–161; BP diastolic 70–81
--- NOTE | 2024-08-22 01:42 | NUR ---
ROUNDING ON PATIENT. PATIENT RESTING IN BED EYES CLOSED RESPIRATIONS 16/MIN. PATIENT ALERT TO NAME, SITS UP ALERT AND ORIENTED. V/S STABLE, LEFT BKA DRESSING CDI. PATIENT HAS SENSATION NOW AT LEFT THIGH, HE REPORTS NO PAIN. NO NAUSEA. AFEBRILE. PATIENT HAS NO REQUESTS AT THIS TIME.
[2024-08-22 05:34] LABS: BASOPHILS 0.2 % (0-2); HEMATOCRIT 25.3 % (35.0-50.0); HEMOGLOBIN 8.4 g/dL (12.0-18.0); LYMPHOCYTES 7.2 % (24-44); MCH 26.2 (27-36); MCHC 33.3 g/dl (30-36); MCV 78.6 fl (81-99); MONOCYTES 7.5 % (0-12); NEUTROPHILS 85.1 % (39-80); PLATELET COUNT 391 K/uL (140-440); RBC 3.21 M/ul (4.3-5.7)
[2024-08-22 05:45] LABS: BUN/CREATININE RATIO 36.45 (6.0-28.6); CREATININE, SERUM 0.96 mg/dL (0.70-1.30)
--- NOTE | 2024-08-22 05:48 | NUR ---
ROUNDING..PATIENT RESTING IN BED ALERT AND ORIENTED. HE REPORTS PAIN IS NOTED NOW AT LEFT BKA 01/28, THIS RN ASKED PATIENT IF TYLENOL IS ENOUGH OR IF IT HURTS BADLY ENOUGH FOR STRONGER PAIN COVERAGE, HE SAID, "MAYBE JUST ONE OF THE STRONGER PILLS." THIS RN GAVE PATIENT EDUCATIONS IN REGARDS TO OXYCODONE AND SIDE EFFECTS. PATIENT ADMINISTERED 5MG PO OXYCODONE PRN. HE REPORTS NO NAUSEA AT THIS TIME. DRESSING AT LEFT BKA IS CDI.
--- NOTE | 2024-08-22 05:56 | NUR ---
PATIENT HAS SLEPT WELL OVER SHIFT, HE HAD REPORTED NO PAIN OVER SHIFT UNTIL THIS AM. TYLENOL PRN WAS ADMINISTERED WITH HS MEDICATIONS FOR BASE PAIN MANAGEMENT. HE WAS NOT STEADY/SAFE WITH TRANSFERING FROM RECLINER TO BED, REQUIRED TWO PEOPLE. ATTEMPTS TO QUE PATINET ON SAFE TRANSFER TECHNIQUE NOT HEEDED. HE TRIES TO HOP AND TWIST WITHOUT USING FWW OR LIFTING FWW OFF THE FLOOR. DRESSING REMAINS CDI, NO SHADOWING, LEFT BKA ELEVATED ON PILLOW. PATIENT REPORTED INCREASED PAIN THIS AM, ONE TAB OXYCODONE ADMINISTERED PRN.
--- NOTE | 2024-08-22 07:40 | NUR ---
RECEIVED REPORT FROM DANIELLE TAN. PT AWAKE IN BED, STATES PAIN IS MINIMAL AT THIS TIME. DRESSING ON LLE C/D/I. PT STATES NO CURRENT NEEDS, CALL LIGHT WITHIN REACH.
--- NOTE | 2024-08-22 08:30 | NUR ---
PT AWAKE IN BED, DENIES PAIN AT THIS TIME, REQUESTS ASSISTANCE WITH ADJUSTING PILLOW UNDER LLE, ASSISTANCE PROVIDED. DRESSING ON LLE C/D/I. CAMILO HOSE IN PLACE ON RLE. PT DENIES ANY FEELING OF DISTENTION OR BLOATING AT THIS TIME, ABDOMEN SOFT, NON-TENDER, BOWEL TONES ACTIVE. COTTER CATHETER REMAINS IN PLACE, DRAINING INTO BAG VIA GRAVITY. PT TAKES PO MEDICATION W/O DIFFICULTY. PT REQUESTS MORE ICE WATER, GIVEN. PT STATES NO FURTHER NEEDS AT THIS TIME, CALL LIGHT WITHIN REACH.
--- NOTE | 2024-08-22 09:23 | NUR ---
PHYSICAL THERAPY AT THE BEDSIDE. STAT LOCK PLACED FOR COTTER CATHETER.
--- NOTE | 2024-08-22 10:11 | OR ---
[facility] [address], [place] [address] Signed DATE OF OPERATION: 08/21/2024 SURGEON: Sarah Renteria MD PREOPERATIVE DIAGNOSIS: Gangrene, left foot, status post guillotine BKA POSTOPERATIVE DIAGNOSIS: Gangrene, left foot, status post guillotine BKA PROCEDURE PERFORMED: Irrigation and debridement skin, subcutaneous tissue and bone, left BKA stump, delayed primary closure. REAL ESTATE SALESPERSON: None. ANESTHESIA: General. BLOOD LOSS: Less than 50 mL. BRIEF HISTORY: Dayami is a 68-year-old gentleman, who suffered significant gangrene in his foot that resulted in gas formation and extensive sepsis. He was taken emergently for guillotine BKA two days ago. He subsequently rebounded quite nicely and was feeling good. Risks, benefits, and alternatives of debridement and closure were discussed with he and his family and they elected to proceed. DESCRIPTION OF OPERATION: Once consent was obtained, he was taken to the operating room. After adequate anesthesia, he was placed on the operating table. All downside pressure points were well padded. The prior dressing was removed and the leg was prepped and draped in a standard sterile fashion. The leg was placed in a tourniquet prior to this. The BKA wound was then inspected and the muscle of the calf was debrided to allow better fit. All bleeders were cauterized and were tied with 2-0 silk ties. The stump was quite dry at this point. We then irrigated it with one bottle of Surgiphor and L of normal saline. The fascia of the posterior calf was then closed to the anterior tibial fascia using #1 Vicryl. The subcutaneous layer was closed using 0 Stratafix, the skin with 2-0 Electronically Signed By: SARAH RENTERIA MD 08/22/24 1011 PATIENT NAME: DAYAMI ROMERO OPERATIVE REPORT DATE OF : 59 REPORT #: [id number] PHYSICIAN: SARAH RENTERIA MD PCP: JOYCE BLACKWELL PAC REPORT IS CONFIDENTIAL AND NOT TO BE RELEASED WITHOUT AUTHORIZATION [facility] [address] [place], [place] [address] Signed nylon in interrupted pattern. The wound closed quite nicely. This was then dressed with Allevyn, fluffs and ABDs. This was overwrapped with Kerlix and an Glen wrap. He tolerated the procedure well. All sponge, needle, and instrument counts were correct. Sarah Renteria MD BA/KOKIL /[id number] Copies: ~ Electronically Signed By: SARAH RENTERIA MD 08/22/24 1011 PATIENT NAME: DAYAMI ROMERO OPERATIVE REPORT DATE OF : 59 REPORT #: [id number] PHYSICIAN: SARAH RENTERIA MD PCP: JOYCE BLACKWELL PAC REPORT IS CONFIDENTIAL AND NOT TO BE RELEASED WITHOUT AUTHORIZATION
--- NOTE | 2024-08-22 10:58 | NUR ---
PT UP TO CHAIR VISITING WITH . PT AND ASKING FOR A NEW RESISTANCE BAND D/T NOT BEING ABLE TO FIND THE ONE GIVEN TO HIM YESTERDAY SINCE CHANGING ROOMS. NEW BAND PROVIDED, PT PRACTICES ARM EXCERCISES WITH THIS RN PRESENT. THIS RN REVIEWS IMPORTANCE OF BUILDING ARM STRENGTH AND BEING UP TO THE CHAIR WITH PT. PT AND VERBALIZE UNDERSTANDING. PT STATES NO FURTHER NEEDS AT THIS TIME, CALL LIGHT WITHIN REACH.
--- NOTE | 2024-08-22 13:15 | NUR ---
MD TO BEDSIDE. PT STATES NO CURRENT NEEDS, CALL LIGHT WITHIN REACH.
[2024-08-22] MEDS ORDERED: chlorproMAZINE HCL 25 MG TAB PO SCH (15:00)
--- NOTE | 2024-08-22 17:15 | NUR ---
THIS RN CALLS DR. QUINN TO UPDATE ON PT STATUS WITH COTTER CATHETER. STATES IS OKAY TO DC COTTER CATHETER AT THIS TIME.
--- NOTE | 2024-08-22 18:44 | NUR ---
COTTER CATHETER DC'D WNL, PT TOLERATES WELL. PT STATES NO FURHTER NEEDS AT THIS TIME, CALL LIGHT WITHIN REACH.
--- NOTE | 2024-08-22 19:15 | NUR ---
REPORT RECIEVED FROM DANIELLE BARRY. PATIENT SLEEPING IN BED, EYES CLOSED, RESPIRATIONS EVEN AND UNLABORED. CALL LIGHT IN REACH.
[2024-08-22] MEDS ORDERED: POLYETHYLENE GLYCOL 3350 1 PACKET PO SCH (21:00)
--- NOTE | 2024-08-22 21:15 | NUR ---
IN ROOM TO ADMINISTER MEDICATIONS, SEE E-MAR. ASSESSMENT COMPLETED. PATIENT BEDDING AND GOWN SOILED. PATIENT UP TO THE CHAIR TO CHANGE LINENES AND GOWN. PATIENT AMBULATES BACK TO BED. PATIENT DENIES ADDITIONAL NEEDS AT THIS TIME. CALL LIGHT IN REACH. BED ALARM ACTIVE.
--- NOTE | 2024-08-22 23:53 | NUR ---
IN ROOM TO ROUND ON PATIENT. PATIENT AWAKE IN BED. PATIENT REQUESTED ASSISTANCE WITH EMPTYING URINAL AND EXPRESSED NEED TO VOID. PATIENT VOIDED WITHOUT DIFFICULTY. PATIENT POSITIONED ON LEFT SIDE. PATIENT DENIES PAIN AT THIS TIME. PATIENT DENIES ADDITIONAL NEEDS AT THIS TIME. CALL LIGHT IN REACH. BED ALARM ACTIVE.
[2024-08-23] VITALS (11 sets, daily range): BP systolic 124–155; BP diastolic 54–79
--- NOTE | 2024-08-23 01:22 | NUR ---
PATIENT ASSESSMENT COMPLETE. PATIENT DENIES PAIN AT THIS TIME. PATIENT RESTING IN BED. URINAL EMPTIED. PATIENT DENIES ADDITIONAL NEEDS AT THIS TIME. CALL LIGHT IN REACH. BED ALARM ACTIVE.
--- NOTE | 2024-08-23 01:52 | NUR ---
IV ABX COMPLETE. PATIENT ASLEEP IN BED. RESPIRATIONS EVEN AND UNLABORED.
--- NOTE | 2024-08-23 03:26 | NUR ---
IN ROOM TO REPLACE CONTINUOUS IV FLUIDS, SEE E-MAR. PATIENT RESTING WITH EYES CLOSED. NO NEEDS IDENTIFIED AT THIS TIME. RESPIRATIONS EVEN AND UNLABORED. CALL LIGHT IN REACH. BED ALARM ACTIVE.
--- NOTE | 2024-08-23 05:29 | NUR ---
IN ROOM TO ROUND ON PATIENT. VITALS ASSESSED. LAB PRESENT IN ROOM. PATIENT URINAL EMPTIED. PATIENT DENIES PAIN. PATIENT DENIES ADDITIONAL NEEDS AT THIS TIME. CALL LIGHT IN REACH. BED ALARM ACTIVE.
[2024-08-23 05:34] LABS: BASOPHILS 0.2 % (0-2); EOSINOPHILS 0.4 % (0-6); HEMATOCRIT 24.3 % (35.0-50.0); HEMOGLOBIN 8.1 g/dL (12.0-18.0); LYMPHOCYTES 15.2 % (24-44); MCH 26.4 (27-36); MCHC 33.6 g/dl (30-36); MCV 78.8 fl (81-99); MONOCYTES 8.1 % (0-12); NEUTROPHILS 76.1 % (39-80); PLATELET COUNT 398 K/uL (140-440); RBC 3.08 M/ul (4.3-5.7); RDW 14.2 (10.5-15.0)
[2024-08-23 05:49] LABS: ALBUMIN 1.4 g/dL (3.4-5.0); ALBUMIN/GLOBULIN RATIO 0.37 (1.1-2.4); ANION GAP 7.3 (7-21); BILIRUBIN, TOTAL 0.3 ng/dL (0.2-1.0); BUN/CREATININE RATIO 21.62 (6.0-28.6); CALCIUM 7.9 mg/dL (8.5-10.1); CREATININE, SERUM 0.74 mg/dL (0.70-1.30); POTASSIUM 3.3 mmol/L (3.5-5.1); PROTEIN, TOTAL 5.2 g/dL (6.4-8.2)
--- NOTE | 2024-08-23 06:00 | NUR ---
PATIENT BLOOD SUGAR 64 ON LAB DRAW. PATIENT GIVEN 4oz APPLE JUICE. PATIENT DENIES SYMPTOMS OF HYPOGLYCEMIA. PATIENT ABLE TO INTAKE JUICE ORALLY WITHOUT ISSUE. WILL RECHECK Q15 MINUTES. CALL LIGHT IN REACH. BED ALARM ACTIVE.
--- NOTE | 2024-08-23 06:13 | NUR ---
IN ROOM TO REASSESS BLOOD SUGAR. BLOOD SUGAR 57. PATIENT GIVEN 8oz OF APPLE JUICE. PATIENT TOLERATED JUICE ORALLY WITHOUT ISSUE. PATIENT DENIES SYMPTOMS OF HYPOGLYCEMIA. WILL RECHECK Q15 MINUTES. CALL LIGHT IN REACH. BED ALARM ACTIVE.
--- NOTE | 2024-08-23 06:32 | NUR ---
IN ROOM TO REASSESS BLOOD SUGAR. BLOOD SUGAR 81. PATIENT REPORTS FEELING FINE AND DENIES SYMPTOMS OF HYPOGLYCEMIA. PATIENT EATING JALYN CRACKERS WITH PEANUT BUTTER TO SUSTAIN BLOOD SUGAR LEVELS. PATIENT DENIES ADDITIONAL NEEDS AT THIS TIME. CALL LIGHT IN REACH. BED ALARM ACTIVE.
--- NOTE | 2024-08-23 06:45 | NUR ---
UPDATED ON PATIENT'S HYPOGLYCEMIA.
--- NOTE | 2024-08-23 07:10 | NUR ---
Pt report received from RNs Binta Huang and Hiral Perez. Pt is resting supine in bed, eyes closed, breathing regular, even, and non-labored. Side rails up x2, call light in reach, no drainage noted on dressing to left leg/op site. White board updated.
[2024-08-23] MEDS ORDERED: POTASSIUM CHLORIDE 10 MEQ TABCR PO ONE (09:00)
--- NOTE | 2024-08-23 10:48 | NUR ---
Two person assist with FWW, pt transferred from chair to BSC to have a large BM. Two person assist with FWW pt transferred back to chair when finished. Pt needs work practicing the transfer methods taught to him by Physical Therapists. Pt verbalized understanding when explained this to him. He does appear to be working hard and trying to do what he's taught, though. Pillow placed beneath knees and pt reclined in chair with his blankt. Bedside table, call light, and personal belongings in reach. Denies further needs at this time.
--- NOTE | 2024-08-23 15:37 | NUR ---
Pt's spouse and other family member left pt's room, came to the nurse's station, and expressed concern about the pt telling her that he will be discharging to home tomorrow. She requested that the "Doctor" make sure the pt knows that he will be discharging to a rehab facility first. The expressed concern that she is not ready to have him home after his amputation just yet because she doesn't feel he is strong enough and she isn't strong enough to help him by herself. I advised the that I will let the doctor know her request.
--- NOTE | 2024-08-23 18:41 | NUR ---
Pt has been up in the chair for the majority of this shift after working with physical therapy this morning. Pt has used call light appropriately, however, he, one time, transferred himself back to the chair from the BSC after toileting, without calling (the walker had been left near the pt, so he used it to transfer without alerting staff). After pt was redirected/re-educated on the importance of calling staff prior to moving, the pt did use his call light. Pt was encouraged by physical therapy to use the BSC for both voiding and BMs, which he did; however, he had a difficult time urinating in to the commode and urinated partially on the floor when he did. Pt was advised he can use his urinal during the shift superintendent. Pt had a large BM this shift. Pt required 3 units of insulin at dinner for 159 cbg. A.M. and lunchtime CBGs were WNL. Pt has had no complaints of pain this shift.
--- NOTE | 2024-08-23 19:05 | NUR ---
RECIEVED REPORT FROM DANIELLE PUGH. PATIENT SLEEPING IN CHAIR WITH EYES CLOSED. RESPIRATIONS EVEN AND UNLABORED. PATIENT AWAKENED EASILY. PATIENT DENIES NEEDS AT THIS TIME. CALL LIGHT IN REACH.
--- NOTE | 2024-08-23 20:49 | NUR ---
PATIENT'S BLOOD SUGAR ASSESSED. PATIENT SITTING IN CHAIR. PATIENT DENIES ADDITIONAL NEEDS AT THIS TIME. CALL LIGHT IN REACH.
[2024-08-23] MEDS ORDERED: INSULIN GLARGINE-YFGN 100 UNIT/ML ML SUB-Q SCH (21:00)
--- NOTE | 2024-08-23 21:29 | NUR ---
IN ROOM TO ADMINISTER MEDICATION, SEE E-MAR. PATIENT TOLERATED ORAL MEDICATIONS WITHOUT DIFFICULTY. PATIENT PROVIDED PROTIEN SHAKE TO SUSTAIN BLOOD SUGAR THROUGHOUT THE NIGHT. PATIENT SIPPING ON PROTEIN SHAKE. PATIENT DENIES ADDITIONAL NEEDS AT THIS TIME. PATIENT RESTING IN BED. CALL LIGHT IN REACH. BED ALARM ACTIVE.
[2024-08-24] VITALS (10 sets, daily range): BP systolic 105–157; BP diastolic 61–81
--- NOTE | 2024-08-24 00:41 | NUR ---
PATIENT ASLEEP IN BED. RESPIRATIONS EVEN AND UNLABORED. LEFT LEG ELEVATED ON PILLOW. CALL LIGHT IN REACH. BED ALARM ACTIVE.
--- NOTE | 2024-08-24 02:33 | NUR ---
PATIENT ASSESSMENT AND VITALS COMPLETED. PATIENT URINAL EMPTIED. PATIENT DENIES ADDITIONAL NEEDS AT THIS TIME. CALL LIGHT IN REACH. BED ALARM ACTIVE.
--- NOTE | 2024-08-24 04:36 | NUR ---
PATIENT ASLEEP IN BED. RESPIRATIONS EVEN AND UNLABORED. CALL LIGHT IN REACH. BED ALARM ACTIVE.
--- NOTE | 2024-08-24 05:20 | NUR ---
PATIENT SLEEPING IN BED. AWAKENS EASILY FOR VITALS. PATIENT DENIES ADDITONAL NEEDS AT THIS TIME. CALL LIGHT IN REACH. BED ALARM ACTIVE.
--- NOTE | 2024-08-24 05:47 | NUR ---
ASSESSED PATIENT'S GLUCOSE LEVELS ON POC GLUCOMETER DUE TO HYPOGLYCEMIA OVERNIGHT LAST NIGHT AND NO AM LABS. PATIENT GLUCOSE 128. PATIENT DENIES SYMPTOMS OF HYPOGLYCEMIA. PATIENT DENIES ADDITIONAL NEEDS AT THIS TIME. CALL LIGHT IN REACH. BED ALARM ACTIVE.
--- NOTE | 2024-08-24 07:11 | NUR ---
Pt report received from RNs Binta Avila and Hiral Aguilar
--- NOTE | 2024-08-24 09:09 | NUR ---
UPDATED NOTES FAXED TO [facility] AND [facility]. [facility], PER [facility], HAS NO OPEN BEDS UNTIL SATURDAY OR SATURDAY. HARLEY FROM [facility] IS OUT OF FACILITY UNTIL TOMORROW. PLASCENCIA SPEAK WITH PATIENT THIS AM REGARDING OTHER OPTIONS FOR PLACEMENT WELL.
--- NOTE | 2024-08-24 09:30 | NUR ---
Physical therapy in with pt at this time. Pt is sitting up at edge of bed, preparing to transfer to chair.
--- NOTE | 2024-08-24 10:05 | NUR ---
UR CONCURRENT REVIEW: [facility]- DOES NOT MEET GL DAY 2 FOR [facility] COMPLETED [facility] PPO INPT 08/19/24 @ 1036 UPDATED CLINICAL FAXED TO [facility] FOR EXTENDED AUTH PT/OT RECOMMEND PLACEMENT TO IPR OR SNF. AWAITING PLACEMENT. 08/26/24
--- NOTE | 2024-08-24 11:14 | NUR ---
VISITED DURING SPIRITUAL CARE ROUNDS. PT APPEARED TO BE IN OVERALL GOOD SPIRITS, DENIED IMMEDIATE NEEDS. FIXTURE FABRICATOR REPAIRER PROVIDED SUPPORTIVE PRESENCE, HOSPITALITY, PRAYER, FACILITATED INTERACTION WITH THERAPY ANIMAL. PT EXPRESSED GRATITUDE FOR VISIT, HOPE IN RECOVERY.
[2024-08-24] MEDS ORDERED: lisinopriL 10 MG TAB PO SCH (11:17)
--- NOTE | 2024-08-24 12:31 | NUR ---
PC from pt's , Annamarie, requesting an update on his discharge status. Updated Annamarie, questions answered.
--- NOTE | 2024-08-24 13:00 | NUR ---
SPOKE WITH PATIENT. HE IS AGREEABLE TO [facility]. STATES HE WILL GO TO FACILITY THAT ACCEPTS HIM THE SOONEST SO HE MAY MOVE ON TO THE NEXT STEP. ALSO DISCUSSED NEED FOR WALKER. STATES HE WOULD BE OK WITH [facility]. ORDERS AND NOTES FAXED TO [facility]. NO ACCEPTING FACILITY AT THIS TIME.
--- NOTE | 2024-08-24 13:52 | NUR ---
CALLED AND SPOKE WITH DAVONTE AT [facility]. THEY WILL REVIEW CHART.
--- NOTE | 2024-08-24 15:55 | NUR ---
Patient has been in-house x5 days - awaiting placement at a SNF or [facility] inpatient rehab. He is from home with his . He has poorly controlled diabetes and is s/p L BKA on 08/20/24. Appetite is improving. Patient ate 100% of meals today. Current diet: 60 gm cons carb. Diet order is appropriate. No further intervention needed at this time. Will continue to monitor PO intake and add Ensure Max 1-2 per day if po intake decreases while here.
--- NOTE | 2024-08-24 19:35 | NUR ---
VERBAL ORDER RECEIVED VERIFIED WITH READBACK METHOD TO DC TELE.
--- NOTE | 2024-08-24 19:52 | NUR ---
RECIEVED REPORT FROM DANIELLE PUGH. PATIENT RESTING IN CHAIR. PATIENT WATER REFILLED. PATIENT DENIES ADDITIONAL NEEDS AT THIS TIME. CALL LIGHT IN REACH.
--- NOTE | 2024-08-24 21:11 | NUR ---
IN ROOM TO ASSESS BLOOD SUGAR. PATIENT RESTING IN CHAIR. URINAL EMPTIED. LEFT LEG REPOSITIONED WITH PILLOW. PATIENT DENIES ADDITIONAL NEEDS AT THIS TIME. CALL LIGHT IN REACH.
--- NOTE | 2024-08-24 21:20 | NUR ---
IN ROOM TO ADMINISTER MEDICATIONS, SEE E-MAR. PATIENT TOLERATED ORAL MEDICATIONS WITHOUT DIFFICULTY. PATIENT PROVIDED WITH PROTEIN SHAKE TO SUSTAIN BLOOD SUGAR THROUGHOUT THE NIGHT. ASSESSMENT COMPLETE. PATIENT DENIES ADDITIONAL NEEDS AT THIS TIME. CALL LIGHT IN REACH.
--- NOTE | 2024-08-24 22:52 | NUR ---
2PA PIVOT TX WITH FWW FROM RECLINER TO BED. PT ROSEMARIE WELL. ASSISTED TO REPOSITION IN BED WITH PILLOWS. NO FURTHER NEEDS. BED ALARM FOR SAFETY. CALL LIGHT IN REACH.
[2024-08-25] VITALS (8 sets, daily range): BP systolic 118–159; BP diastolic 69–80
--- NOTE | 2024-08-25 02:28 | NUR ---
IN ROOM TO ROUND ON PATIENT. PATIENT SLEEPING. RESPIRATIONS EVEN AND UNALABORED. CALL LIGHT IN REACH. BED ALARM ACTIVE.
--- NOTE | 2024-08-25 02:50 | NUR ---
BED ALARM SOUNDING. PT ON SIDE OF BED TO VOID 300 ML CLEAR YELLOW URINE. ASSISTED BACK TO BED. NO FURTHER NEEDS. BED ALARM FOR SAFETY.
--- NOTE | 2024-08-25 04:15 | NUR ---
IN ROOM TO ROUND ON PATIENT. PATIENT ASLEEP IN BED. RESPIRATIONS EVEN AND UNLABORED. CALL LIGHT IN REACH. BED ALARM ACTIVE.
--- NOTE | 2024-08-25 04:40 | NUR ---
IN ROOOM TO RESPOND TO BED ALARM. PATIENT SITTING AT THE EDGE OF THE BED USING URINAL. URINAL EMPTIED. WATER REFILLED. VITALS COMPLETED. PATIENT DENIES ADDITIONAL NEEDS AT THIS TIME. CALL LIGHT IN REACH. BED ALARM ACTIVE.
--- NOTE | 2024-08-25 05:30 | NUR ---
IN ROOM RESPONDING TO BED ALARM. PATIENT SEATED AT THE EDGE OF THE BED. PATIENT STATES HE FEELS LIKE HE MIGHT NEED TO HAVE BOWEL MOVEMENT. 2PA PIVOT TO THE BSC. PATIENT GIVEN CALL LIGHT AND INSTRUCTED TO CALL WHEN HE WAS DONE. 0535 - IN ROOM TO CHECK ON PATIENT. PATIENT BACK IN BED WITHOUT CALLING. PATIENT DID NOT PRODUCE BOWEL MOVEMENT. LAB PRESENT IN THE ROOM. DISCUSSED CALL LIGHT AND SAFETY WHILE TRANSFERING. CALL LIGHT IN REACH. BED ALARM ACTIVE.
[2024-08-25 05:48] LABS: ANION GAP 7.9 (7-21); BUN/CREATININE RATIO 11.53 (6.0-28.6); CALCIUM 8.3 mg/dL (8.5-10.1); CREATININE, SERUM 0.78 mg/dL (0.70-1.30); POTASSIUM 3.9 mmol/L (3.5-5.1)
--- NOTE | 2024-08-25 07:28 | NUR ---
REPORT FOR SUPERVISOR POWDERED METAL RN.
--- NOTE | 2024-08-25 08:50 | NUR ---
MORNING ASSESSMENT IS COMPLETE. PATIENT DENIES PAIN OR NAUSEA, HAS A GOOD APPETITE AND ATE 90% OF BREAKFAST. LEFT STUMP DRESSING IS CDI. REPORTED RIGHT GREAT TOE REDNESS ASSESSED. SKIN IS NOT RED, INTACT AND NO BREAKDOWN NOTED. VSS, MORNING MEDICATIONS GIVEN. PATIENT IS LOOKING FORWARD TO PLACEMENT FOR PHYSICAL REHAB.
--- NOTE | 2024-08-25 09:39 | NUR ---
PT WANTED TO CLEAN UP I GET UP WASH CLOTHS AND A CUP OF WATER. PT HAD HIS PERSONAL TOOTH BRUSH AND SHAVER. PT DIDNT NEED ANY HELP AND CALL LIGHT IS WITHIN REACH.
--- NOTE | 2024-08-25 10:08 | NUR ---
RECEIVED MESSAGE FROM DAVONTE AT [facility], THEY ARE ABLE TO ACCEPT THE PATIENT AND INSURANCE AUTH IS PENDING. WILL NOTIFY WHEN THEY ARE ABLE TO ACCEPT PATIENT INTO THEIR CARE.
--- NOTE | 2024-08-25 10:57 | NUR ---
PT AND OT IN TO WORK WITH PATIENT.
--- NOTE | 2024-08-25 11:21 | NUR ---
PATIENT IS WORKING WITH THERAPY, NO NEEDS AT THIS TIME.
--- NOTE | 2024-08-25 12:04 | NUR ---
PATIENT GIVEN 5UNITS ON SQ INSULIN TO BACK OF LEFT ARM FOR BG OF 194. NO OTHER NEEDS AT THIS TIME.
--- NOTE | 2024-08-25 13:44 | NUR ---
PATIENT UPDATED ON PLAN FOR DC. INFORMED HE HAS BEEN ACCEPTED TO [facility] THEY ARE AWAITING INSURANCE AUTH. REQUESTS THIS NURSE CONTACT , MILIND. CALLED AND LEFT MILIND TO PLEASE RETURN CALL REGARDING DC PLAN. HER PHONE NUMBER IS [phone].
--- NOTE | 2024-08-25 14:06 | NUR ---
SPOKE WITH MILIND, . UPDATED HER ABOUT [facility] ACCEPTING PATIENT. SHE PREFERS PATIENT TRANSPORT TO [facility] VIA WHEELCHAIR VAN BECAUSE SHE DOES NOT FEEL COMFORTABLE TRANSPORTING HIM HERSELF. WILL UPDATE HER REGARDING DAY WHEN FACILITY GIVES A DATE FOR ADMISSION.
--- NOTE | 2024-08-25 15:26 | NUR ---
CALLED AND SPOKE WITH DAVONTE AT [facility], NO AUTH FROM INSURANCE BUT THEY WILL BE HAVING A BED OPEN TOMORROW.
--- NOTE | 2024-08-25 15:35 | NUR ---
PATIENT IS UP TO CHAIR, FAMILY IN ROOM.
--- NOTE | 2024-08-25 17:35 | NUR ---
PATIENT IS SITTING UP TO CHAIR FOR DINNER, 3UNITS OF INSULIN GIVEN FOR BG OF 174. PATIENT DENIES PAIN, DENIES OTHER NEEDS.
--- NOTE | 2024-08-25 18:13 | PATH ---
[facility] [address] [place], [place] [address] Signed SPECIMEN(S): A LEFT LOWER LIMB SPECIMEN SOURCE: A. LEFT LOWER LIMB CLINICAL HISTORY: Diabetic foot infection, left FINAL PATHOLOGIC DIAGNOSIS: Left lower limb: - Left below the knee amputation with a 13 cm ulceration on the lateral aspect of the foot and a second 2.5 cm dorsal/medial ulceration. - Areas of ulceration show extensive skin and soft tissue necrosis and purulent acute inflammation extending to the underlying bone. - The proximal soft tissue margins are negative for significant inflammation. - The bone marrow at the proximal margin shows fat necrosis, without unequivocal evidence of osteomyelitis. - Sampled blood vessels are negative for significant luminal obstruction and show mild atherosclerosis and focal calcification with minimal luminal narrowing. JVR:clv MICROSCOPIC EXAMINATION: Histologic sections of all submitted blocks are examined by light microscopy. These findings, together with the gross examination, support the pathologic diagnosis. GROSS DESCRIPTION: The specimen, labeled and designated "Viviane Romero, per requisition left lower limb," is received fresh and consists of a 23 x 8.2 x 6.6 cm left foot with the extremity proximal measuring 10 x 7 x 5.8 cm. There is a 13.1 x 6.3 cm ulceration on the lateral aspect of the foot extending towards the plantar aspect of the foot. The underlying soft tissue is purulent, though the bone is firm and difficult to cut through with a scalpel. There is a second area of ulceration on the dorsal medial aspect of the foot measuring 2.5 x 1.5 cm and has surrounding fibrous tissue. The underlying bone is firm and difficult to cut through with a scalpel. All 5 digits are intact with no apparent gangrenous changes. All toenails are intact. There is no significant amount of calcific arteriosclerosis. The skin and soft tissue at the proximal amputation margin PATIENT NAME: DAYAMI ROMERO PATHOLOGY DATE OF : 59 REPORT #: [id number] PHYSICIAN: [email or web address] PATHOLOGY PCP: JOYCE BLACKWELL PAC REPORT IS CONFIDENTIAL AND NOT TO BE RELEASED WITHOUT AUTHORIZATION [facility] [address] [place], [place] [address] Signed are unremarkable. The bone at the amputation margin is firm and homogeneous. Target Man sections are submitted in 4 cassettes as follows: Cassette Summary: (A1) area of ulceration with underlying bone (A2) bone marrow from bony margin (A3) skin and underlying soft tissue and muscle from amputation margin (A4) vasculature, posterior vessel inked blue AA (under the direct supervision of a pathologist) The Gross Description was prepared using a voice recognition system. The report was reviewed for accuracy; however, sound-alike word errors, addition and/or deletions may occur. If there is any question about this report, please contact Client Services. PERFORMING LABORATORY: Technical component was performed by [facility], [address] [place] [id number] (CLIA# [id number]). Professional interpretation was performed by [facility] - [facility], [address] [place] [id number] (CLIA#: [id number]). Diagnostician: Chris Sawyer MD Pathologist Electronically Signed 08/25/2024 Copies: ~ PATIENT NAME: DAYAMI ROMERO Asher PATHOLOGY DATE OF : 59 REPORT #: [id number] PHYSICIAN: ROMERO PATHOLOGY PCP: JOYCE BLACKWELL PAC REPORT IS CONFIDENTIAL AND NOT TO BE RELEASED WITHOUT AUTHORIZATION
--- NOTE | 2024-08-25 18:30 | NUR ---
PATIENT IN CHAIR AT THIS TIME. FRUIT TESTER CHARTED VITALS AND I&O'S. CALL LIGHT WITHIN REACH, NO FURTHER NEEDS AT THIS TIME.
--- NOTE | 2024-08-25 19:15 | NUR ---
RECIEVED REPORT FROM DANIELLE ADAN. PATIENT AWAKE IN BED. PATIENT STATED HE HAD A GOOD DAY. WATER REFILLED. PATIENT DENIES ADDITIONAL NEEDS AT THIS TIME. CALL LIGHT IN REACH. BED ALARM ACTIVE.
--- NOTE | 2024-08-25 19:45 | NUR ---
BED ALARM SOUNDING, pt UP TO SIDE OF BED INDEPENDENTLY TO VOID IN URINAL. BACK IN BED, LEG ELEVATED ON PILLOW. pt HAS CALL LIGHT IN REACH, BED ALARM ON.
--- NOTE | 2024-08-25 22:37 | NUR ---
IN ROOM TO ASSESS BLOOD SUGAR. MEDICATIONS ADMINISTERED, SEE E-MAR. ASSESSMENT COMPLETED. PATIENT WANTING UPDATE ON PLACEMENT. ADVISED THAT PATIENT WAS ACCEPTED AT [facility], HOWEVER THEY HAVE NO BED AVAILABILITY, SO WE ARE WAITING FOR A BED TO COME AVAILABLE. PATIENT VERBALIZED UNDERSTANDING. PATIENT DENIES ADDITIONAL NEEDS AT THIS TIME. CALL LIGHT IN REACH. BED ALARM ACTIVE.
[2024-08-26] VITALS (10 sets, daily range): BP systolic 147–153; BP diastolic 74–81
--- NOTE | 2024-08-26 00:27 | NUR ---
IN ROOM TO ROUND ON PATIENT. PATIENT ASLEEP IN BED. URINAL EMPTIED. WATER REFILLED. NO NEEDS IDENTIFIED AT THIS TIME. CALL LIGHT IN REACH. BED ALARM ACTIVE.
--- NOTE | 2024-08-26 05:45 | NUR ---
PATIENT CALLED WANTING TO GET UP TO HAVE BM. 2 PA TO BEDSIDE COMMODE MINIMAL ASSIST. PATIENT GOT BACK TO BED HIMSELF STATED JUST RIGHT SPOT WHERE THE COMMODE CLOSE TO BED. PATIENT DID SELF LIYAH CARE. PATIENT HAD A LARGE FORMED BM AND URINATED UNMEASURED. V/S AND I&O'S OBTAINED AND CHARTED. ICE WATER REFILLED. NO FURTHER NEEDS AT THIS TIME.
--- NOTE | 2024-08-26 05:52 | NUR ---
IN ROOM TO ROUND ON PATIENT. ASSESSMENT COMPLETED. PATIENT RESTING IN BED. PATIENT DENIES ADDITIONAL NEEDS AT THIS TIME. CALL LIGHT IN REACH.
--- NOTE | 2024-08-26 07:00 | NUR ---
REPORT RECEIVED FROM DANIELLE TORRE AND DANIELLE LUA. PT RESTING ON R SIDE, EYES CLOSED, RR EVEN AND UNLABORED. CALL LIGHT AND PERSONAL BELONGINGS IN REACH.
--- NOTE | 2024-08-26 08:07 | NUR ---
MESSAGE FROM FLOOR STAFF, PATIENT'S SISTER, ANNELISE, IS UPSET REGARDING DC PLAN. SHE IS NOT LISTED CONTACT AND PREVIOUSLY WHEN SPOKE WITH PATIENT, HE ONLY WANTED CONTACTED REGARDING PLAN. DISCUSSED HIS SISTER WANTING INFORMATION WITH PATIENT THIS MORNING, HE STATES IT IS OK TO SPEAK WITH HER REGARDING DC PLAN. CALLED ANNELISE AT [phone], NO ANSWER. MESSAGE LEFT WITH CALLBACK NUMBER.
--- NOTE | 2024-08-26 08:18 | NUR ---
PATIENT IN CHAIR AT THIS TIME. PHOTOGRAPHIC SPECIALIST ASSISTED PATIENT IN MOVING TO CHAIR AND CHARTED BLOODSUGAR. CALL LIGHT WITHIN REACH, NO FURTHER NEEDS AT THIS TIME.
--- NOTE | 2024-08-26 08:57 | NUR ---
THIS RN REVIEWED JULIO CÉSAR, EDUCATION REP ON INTAKE AND OUTPUT, SHIFT SCREENING, AND MEWS VITAL SIGNS TOOL AT THIS TIME.
--- NOTE | 2024-08-26 08:58 | NUR ---
MEDICATION ADMINISTRATION PER MAR AND INITIAL ASSESSMENT DONE. PT UP IN RECLINER WITH LOWER EXTREMETIES ELEVATED, VISITOR PRESENT SITTING ON PTs BED. PT HAS MCDONALDs AT CHAIRSIDE. PT CURRENTLY REPORTING NO PAIN, "JUST IF I BUMP IT ON SOMETHING!" AND THEN THIS IS A SHARP PAIN WHEN THIS HAPPENS. LUNG SOUNDS CLEAR THROUGHOUT, HEART TONES HEARD WNL, BOWEL TONES HEARD IN ALL FOUR QUADRANTS, PT REPORTS NO NAUSEA AT THIS TIME. RADIAL PULSES 2+, R PEDAL PULSE 1+. R LOWER EXTREMETY WITH 1+ PITTING EDEMA TO [facility] UP THE CALF, PT REPORTS NO NUMBNESS/TINGLING IN ANY EXTREMETIES. SENSATION INTACT. VS AND I&Os ALSO RECORDED AT THIS TIME AND DOCUMENTED IN CHART, BREAKFAST TRAY REMOVED, PT VISITOR REMAINS. PT WITH NO FURTHER NEEDS AT THIS TIME, CALL LIGHT AND PERSONAL BELONGINGS IN REACH.
--- NOTE | 2024-08-26 09:32 | NUR ---
PATIENT IS SITTING UPRIGHT IN THE CHAIR WITH BLE ELEVATED. PATIENT IS ON THEIR PHONE AT THIS TIME. CALL LIGHT AND PERSONAL BELONGINGS ARE WITHIN REACH.
--- NOTE | 2024-08-26 09:51 | NUR ---
PT CURRENTLY UP WORKING WITH SUSAN IN PHYSICAL THERAPY.
--- NOTE | 2024-08-26 10:20 | NUR ---
ROUNDING ON PT. PT RESTING IN BED WATCHING TELEVISION. ENTHUSIASTICALLY REPORTING HIS PHYSICAL THERAPY SESSION AND THE FACT THAT HE GOT HIS NEW FWW WHICH WILL BE GOING TO THE [facility] WITH HIM. HOSPITAL'S FWW REMOVED, CLEANED, RETURNED TO STORAGE. PT HAS NO NEEDS AT THIS TIME, CALL LIGHT AND PERSONAL BELONGINGS IN REACH.
--- NOTE | 2024-08-26 11:22 | NUR ---
THIS RN REVIEWED RAJI RN HOURLY ROUNDING DOCUMENTATION AT THIS TIME.
--- NOTE | 2024-08-26 11:25 | NUR ---
RECIEVED CALL FROM DAVONTE AT [facility]. INSURANCE AUTH IS STILL PENDING. THEY DO HAVE BED AVAILABLE. INFORMED DAVONTE WILL BE TRANSPORTING BY WHEELCHAIR VAN SO IF AUTH COMES TODAY PATIENT WILL NEED TO BE ADMITTED TOMORROW. VERBALIZES UNDERSTANDING. WILL UPDATE NURSING STAFF.
--- NOTE | 2024-08-26 11:53 | NUR ---
PATIENT IN BED AT THIS TIME. PSYCHIATRIC CNS CHARTED PATIENTS BLOODSUGAR. CALL LIGHT WITHIN REACH, NO FURTHER NEEDS AT THIS TIME.
--- NOTE | 2024-08-26 14:37 | NUR ---
UR CONCURRENT REVIEW: MCG-PATIENT MEETS GL DAY 2 FOR DISCHARGE [facility] 08/19/24 PATIENT ACCEPTED WITH [facility] AND IS AWAITING INSURANCE AUTH. DELAY IN DC KAYLIE, AWARE.
--- NOTE | 2024-08-26 14:46 | NUR ---
SECOND ASSESSMENT COMPLETE. PT RESTING IN BED WITH L LIMB ELEVATED ON A PILLOW. IV FLUSHES WNL. PT REPORTING NO PAIN AT THIS TIME. L BKA DRESSING INTACT, NO DRAINAGE OR SHADOWING NOTED. PT REPORTS FEELING BORED, REQUSTING A W/C RIDE AND GET SOME FRESH AIR. NO OTHER NEEDS AT THIS TIME, CALL LIGHT AND PERSONAL BELONGINGS IN REACH.
--- NOTE | 2024-08-26 15:25 | NUR ---
PT ASSISTED IN WHEELCHAIR TO FRONT OF HOSPITAL TO GET SOME FRESH AIR. PT ROOM ALSO CHANGED TO 109 FOR BETTER VIEW, MORE SUNLIGHT. PT BELONGINGS TRANSFERED. PT ASSISTED TO NEW ROOM, TRANSFERS TO RECLINER. BLE ELEVATED, PT WITH CALL LIGHT IN LAP. NO OTHER NEEDS AT THIS TIME.
--- NOTE | 2024-08-26 15:37 | NUR ---
PATIENT IN BED AT THIS TIME. RN CHARTED VITALS AND I&O'S. CALL LIGHT WITHIN REACH, NO FURTHER NEEDS AT THIS TIME.
--- NOTE | 2024-08-26 17:28 | NUR ---
PATIENT IS LYING IN THE CHAIR WITH BLE ELEVATED. PATIENT WITH EYES CLOSED AND RESPIRATIONS ARE EVEN AND UNLABORED. CALL LIGHT AND PERSONAL BELONGINGS ARE WITHIN REACH.
--- NOTE | 2024-08-26 17:58 | NUR ---
PATIENT SITTING UP IN CHAIR WATCHING TV. VITALS AND I&O'S DONE AND CHARTED. CALL LIGHT IN REACH. NO FURTHER NEEDS AT THIS TIME.
--- NOTE | 2024-08-26 18:19 | NUR ---
PT TAKEN IN WHEELCHAIR TO FRONT OF HOSPITAL TO GET SOME FRESH AIR. PT TRANSFERS INTO AND OUT OF WHEELCHAIR WITH SBA. PT LINENS CHANGED AT THIS TIME. PT BACK TO BED. CALL LIGHT AND ALL PERSONAL BELONGINGS IN REACH.
--- NOTE | 2024-08-26 19:08 | NUR ---
BEDSIDE REPORT RECEIVED FROM RNS JULIO CÉSAR AND MARCELL. pt RESTING IN BED WITH LEFT LEG ELEVATED ON PILLOW. NO NEEDS EXPRESSED AT THIS TIME. CALL LIGHT IN REACH.
--- NOTE | 2024-08-26 19:35 | NUR ---
PT TO CCU VIA FLOALTON RN, NETWORK DESIGNER. ALL PERSONAL ITEMS WENT WITH PT.
--- NOTE | 2024-08-26 21:13 | NUR ---
pt RESTING IN BED WITH EYES CLOSED, AWAKENS EASILY. SCHEDULED MEDICATIONS ADMINISTERED. ASSESSMENT COMPLETE. pt DENIES ANY PAIN. IV NOT PATENT, DC'D WNL. ICE WATER REFILLED, URINAL EMPTIED. VSS. CALL LIGHT IN REACH.
--- NOTE | 2024-08-26 23:17 | NUR ---
CHECKED ON pt. RESTING IN BED ON BACK, EYES CLOSED, BREATHING UNLABORED. NO DISTRESS NOTED.
--- NOTE | 2024-08-27 01:40 | NUR ---
pt RESTING IN BED WITH EYES CLOSED. LEFT LEG ELEVATED ON PILLOWS. DRESSING CDI. NO DISTRESS NOTED.
--- NOTE | 2024-08-27 03:13 | NUR ---
CHECKED ON pt. RESTING IN BED WITH EYES CLOSED, BREATHING EQUAL AND UNLABORED. NO DISTRESS NOTED.
[2024-08-27 06:00] VITALS: BP 143/72
--- NOTE | 2024-08-27 06:05 | NUR ---
pt SLEEPING, AWAKENS TO VOICE. VSS. URINE EMPTIED FROM CURRAN BASIN. pt DENIES PAIN. DRESSING CDI. CALL LIGHT IN REACH.
[2024-08-27 06:08] VITALS: BP 143/72
--- NOTE | 2024-08-27 07:13 | NUR ---
REPORT RECEIVED FROM BURR PICKER RN GAEL. PATIENT REQUESTING RN TO DUMP HIS URINAL AT THIS TIME. URIANL EMPTIED OF 525 ML LIGHT YELLOW URINE. PATIENT STATED NO FURTHER NEEDS AT THIS TIME. CALL LIGHT AND PERSONAL BELONGINGS ARE WITHIN REACH.
--- NOTE | 2024-08-27 08:16 | NUR ---
GOT PATIENT A WARM BLANKET.
--- NOTE | 2024-08-27 08:17 | NUR ---
RECIEVED CALL FROM [facility], STATES PATIENT MADE A CALL TO THEM TO MAKE AN APPOINTMENT FOR THIS AFTERNOON TO GET MEDICATIONS. INFORMED OLIVIA THAT PATIENT IS STILL IN THE HOSPITAL AND PLANNING TO GO TO INPATIENT REHAB THIS WEEK AT [facility] IN [place]. STATES SHE WILL CANCEL THE APPOINTMENT. ALSO DISCUSSED FAMILY WANTING TO USE [facility] FOR TRANSPORT TO [facility], [employer] ONLY PROVIDES TRANSPORT TO APPOINMENTS TO THEIR CLINIC. IN ROOM TO SPEAK WITH PATIENT, HE IS MAKING FREQUENT CALLS TO MULTIPLE FRIENDS OR FAMILY MEMBERS WHEN THIS NURSE IN ROOM. FINALLY, HE HANGS UP AND DISCUSSES DC PLAN. HE REMEMBERS HE IS GOING TO INPT REHAB. STATES HE IS WORRIED ABOUT HAVING HIS MEDS AT HOME WHEN HE GOES BACK AND HE NEEDS TO GO TO SEE DR. SAM TO GET MEDS. INFORMED HIM HE CAN NOT GO TO APPOINTMENTS WHILE HE IS AN INPATIENT IN THE HOSPITAL. HE HAS MEDS AVAILABLE TO HIM HERE AND HE WILL HAVE MEDICATIONS AT [facility] AND HE WILL HAVE AN APPOINTMENT MADE WHEN HE IS DISCHARGED FROM FACILITY TO SEE HIS PCP. REINFORCED THIS 2-3 TIMES WHILE SPEAKING WITH PATIENT. INFORMED HIM [facility] IS CANCELLING HIS APPOINTMENT HE MADE FOR TODAY. PATIENT STATES HE HAS LOTS OF THINGS TO TAKE CARE OF AT HOME. OFFERED ACTIVITIES TO PATIENT SO HE ISN'T FOCUSED ON OTHER THINGS. REFUSES. NOTIFED NURSING STAFF PATIENT MAY NEED CONTINUED REDIRECTION IF HE CONTINUES TO TALK ABOUT NEED FOR APPOINTMENTS ETC.
[2024-08-27 08:54] VITALS: BP 172/86
[2024-08-27 08:56] VITALS: BP 172/86
[2024-08-27 08:57] VITALS: BP 172/86
--- NOTE | 2024-08-27 09:10 | NUR ---
0900 MEDICATIONS ADMINISTERED PER THE EMAR. VITAL SIGNS TAKEN AND DOCUMENTED IN THE CHART. FULL ASSESSMENT COMPLETE AND DOCUMENTED IN THE CHART. PATIENT WITH NO COMPLAINTS OF PAIN AT THIS TIME. PATIENT IS ALERT AND ORIENTED. BED ALARM DUE TO PATIENT BEING MORE IMPULSIVE THIS MORNING. PATIENT IS ON ROOM AIR AND LUNG SOUNDS ARE CLEAR BILATERALLY. PATIENT IV REMOVED LAST NIGHT BY NEEDLE LOOM OPERATOR. CARDIAC WITH NORMAL S1 AND S2 ON AUSCULTATION. RADIAL PULSES ARE STRONG BILATERALLY. PEDAL PULSE ON THE RIGHT FOOT IS FAINT. CAMILO HOSE ON THE RLE. RIGHT FOOT AND ANKLE WITH 1+ PITTING EDEMA. PATIENT IS ON 60 GRAM CARB DIET AND BOWEL TONES ARE ACTIVE IN ALL FOUR QUADRANTS. SENSATION IS INTACT WITH NO COMPLAINTS OF NUMBNESS AND TINGLING. DRESSING ON THE LBKA IS CLEAN, DRY, AND INTACT. PATIENT STATED NO FURTHER NEEDS AT THIS TIME. CALL LIGHT AND PERSONAL BELONGINGS ARE WITHIN REACH.
--- NOTE | 2024-08-27 09:20 | NUR ---
Talked with patient after breakfast. His appetite is fair to good. He ate 50% of his scrambled eggs, 80% of Sri Lankan toast (did not use SF syrup), and 100% of OJ. He prefers ice cold milk only, so asked to stop sending milk and coffee on meal trays. Otherwise, no chewing or swallowing problems. He is ready to go to [facility] [place] inpatient rehab but they are waiting on an auth from his insurance. 60 gm cons carb diet in place, which is appropriate. I mentioned that if he wants to try milk again, the unit has milk across the piña in the fridge. He is hoping to be discharged soon. Patient at low nutrition risk, RD will follow up in 7 days if he is still here.
[2024-08-27] MEDS ORDERED: ENOXAPARIN SODIUM 40 MG/0.4 ML SYR SUB-Q SCH (09:30)
--- NOTE | 2024-08-27 10:32 | NUR ---
PATIENT TALKING LOUDLY, RESTLESS IN BED. STATES HE IS NOT GOING OVER TO [facility] BECAUSE "IT'S THE SAME HERE." INFORMED OF DIFFERENCES BETWEEN INPATIENT REHAB AND ACUTE CARE WELL OUTPATIENT PT. PATIENT STATES SOMEONE IS COMING TO PICK HIM UP THIS AFTERNOON AND TAKE HIM HOME. THIS NURSE SPOKE WITH HIS , MILIND, SHE IS AT WORK. SHE DOES NOT WANT PATIENT TO COME HOME BECAUSE SHE DOES NOT FEEL HE IS SAFE IN THE HOME WITH HER. SHE WANTS PATIENT TO GO TO INPATIENT REHAB PRIOR TO COMING HOME. DISCUSSED WITH PATIENT HIS NOT FEELING SAFE WITH HIM COMING HOME. STATES HE IS GOING HOME THIS EVENING NO MATTER WHAT. STATES HE WILL NOT BE GOING TO [facility] INPATIENT BECAUSE HE FEELS HE IS OK TO GO HOME. WHEN DISCUSSING INPT REHAB, HE ESCALATES AND BEGINS TALKING OVER THIS NURSE DURING CONVERSATION. PRIOR TO ENTERING ROOM, DISCUSSED WITH DAVONTE AT [facility] AND THEY STILL DO NOT HAVE INSURANCE AUTHORIZATION.
--- NOTE | 2024-08-27 10:44 | NUR ---
MD NOTIFIED OF PATIENT REFUSING ENOXAPARIN INJECTION. RN NOTIFIED THAT PATIENT STATED "I AM CALLING A CAB IN AN HOUR AND GOING HOME" AND "I ALREADY TOLD THE DOCTOR". MD STATED HE WOULD COME DOWN AND SPEAK WITH THE PATIENT. ALL QUESTIONS AND CONCERNS ADRESSED. CALL ENDED.
--- NOTE | 2024-08-27 10:45 | NUR ---
Per Primary RN, pt continues to state he wants to go home. Case Mgmt notified and they are in process of working on insurance auth, Case Mgmt was just in room with patient discussing discharge planning.
--- NOTE | 2024-08-27 10:51 | NUR ---
CALLED , MILIND, VOICEMAIL LEFT INFORMING HER PATIENT IS REFUSING INTPATIENT REHAB AND IS WANTING TO GO HOME. HE IS OF SOUND MIND AND ABLE TO MAKE HIS OWN DECISIONS SO PHYSICIAN WILL BE DISCHARGING HIM. CALLED AND LEFT VOICEMAIL FOR DAVONTE AT [facility] INPT REH[facility] AND INFORMED HER PATIENT IS GOING HOME.
[2024-08-27] MEDS ORDERED: GABAPENTIN100 MG PO (10:54)
[2024-08-27] MEDS ORDERED: LANTUS SOL100 UNIT/1 SUB-Q (10:55)
[2024-08-27] MEDS ORDERED: OXYCODONE HCL5 MG PO (10:56)
--- NOTE | 2024-08-27 11:00 | NUR ---
PATIENT LAYING IN BED. BED ALARM IS ON.
--- NOTE | 2024-08-27 11:01 | NUR ---
PATIENT WASHED HIS FACE AND BRUSHED HIS TEETH.
--- NOTE | 2024-08-27 11:08 | NUR ---
PATIENT TAKEN ON A WHEELCHAIR RIDE WITH RN AND MARY JO UMANZOR. PATIENT VERY THANKFUL ABOUT GETTING OUTSIDE FOR A COUPLE MINUTES AND GETTING FRESH AIR. PATIENT IS NOW BACK IN BED AND USING THE URINAL AT BEDSIDE. PATIENT STATED HE "NEED THE STOOL TO GET DRESSED". PATIENT EDUCATED ON NOT USING THE STOOL DUE TO RISK OF FALLING. PATIENT EXPRESSED UNDERSTANDING AND STOOL REMOVED FROM THE PATIENTS ROOM AT THIS TIME. PATIENT EDUCATED TO CALL WHEN DONE USING THE RESTROOM. PATIENT STATED NO FURTHER NEEDS AT THIS TIME. CALL LIGHT AND PERSONAL BELONGINGS ARE WITHIN REACH.
--- NOTE | 2024-08-27 11:33 | NUR ---
RN SPOKE WITH HILDA PEACE OVER THE PHONE. RN NOTIFIED HER THAT HE IS NOW REFUSING PLACEMENT AND DISCHARGE ORDER HAS BEEN PUT IN BY . NO FURTHER QUESTIONS OR CONCERNS AT THIS TIME. CALL LIGHT AND PERSONAL BELONGINGS ARE WITHIN REACH.
--- NOTE | 2024-08-27 11:38 | NUR ---
PATIENT STATES HE DOES NOT HAVE A WHEELCHAIR AT HOME AND WILL NEED ONE FOR DISTANCES DUE TO LEG AMPUTATION. STATES HE WOULD LIKE TO USE [facility] FOR WHEELCHAIR.
--- NOTE | 2024-08-27 11:47 | NUR ---
VISITED WITH PT WHILE WAITING FOR TRANSPORT. PT IN OVERALL GOOD SPIRITS. CARE CONSULTANT PROVIDED SUPPORTIVE PRESENCE, ANTICIPATORY GUIDANCE, PRAYER. PT EXPRESSED GRATITUDE.
--- NOTE | 2024-08-27 11:53 | NUR ---
INFORMATION FOR [facility] PROVIDED FOR WHEELCHAIR. PATIENT INFORMED [facility] MAY NOT BE ABLE TO DELIVER A WHEELCHAIR FOR A COUPLE OF DAYS AND [facility] CAN PROVIDE A LOANER WHEELCHAIR UNTIL HIS IS ABLE TO BE DELIVERED. VERBALIZES UNDERSTANDING.
--- NOTE | 2024-08-27 11:54 | NUR ---
PRIOR TO DC. DISCUSSED WITH PATIENT CAPABILITY TO GET IN AND OUT OF [facility] WITHOUT A WHEELCHAIR. STATES HE WILL DO "JUST FINE." HE HAS HELP TO GET OUT OF [facility] AT HOME. INFORMED IF HE FINDS HIS SELF INCAPABLE OF GETTING OUT HE CAN CALL FIRE DEPARTMENT FOR LIFT ASSIST. VERBALIZES UNDERSTANDING.
--- NOTE | 2024-08-27 12:08 | NUR ---
H&P AND DC SUMMARY FAXED TO [facility]. FACESHEET, ORDERS, DC SUMMARY AND H&P SENT TO [facility] WHEELCHAIR VIA FAX.
--- NOTE | 2024-08-28 09:09 | NUR ---
SISTER, ANNELISE, WHOM PATIENT PREVIOUSLY GAVE PERMISSION TO THIS NURSE TO PROVIDE INFORMATION TO, IS AT THE NURSE'S STATION ASKING TO SPEAK WITH CASE MANAGMENT. STATES PATIENT HAS BEEN CRAWLING AROUND ON THE FLOOR AT HOME AND SHE IS CONCERNED ABOUT HIS INICISION SITE AND ASKING "WHAT DO WE DO FROM HERE?" SHE IS UPSET HE WAS DISCHARGED HOME YESTERDAY. INFORMED HER THIS NURSE WAS IN ROOM CLOSE TO 2 HOURS YESTERDAY TO DISCUSS NEED FOR CONTINUE THERAPIES AND NEED TO CONTINUE DC PLAN TO [facility] AND PATIENT WAS NOT AGREEABLE. INFORMED HER PATIENT IS CAPABLE OF MAKING DECISIONS REGARDING HIS CARE AND HE WOULD NOT WAIT TO RECIEVE WHEELCHAIR YESTERDAY PRIOR TO DC. AND HE WOULD NOT WAIT ANY LONGER FOR INSURANCE TO APPROVE HIS INPATIENT STAY. INFORMED HER PRESCRIPTION WAS SENT TO [facility] FOR WHEELCHAIR AND INFORMATION PROVIDED TO PATIENT FOR [employer] TO OBTAIN A WHEELCHAIR UNTIL HE GETS ONE AT HOME AND HE SAID SOMEONE WOULD GET A WHEELCHAIR FOR HIM. ALSO NOTIFIED HER OLIVIA AT [facility] HAD MADE A FOLLOW-UP APPOINTMENT WITH DR. CHINCHILLA AND COULD NOT GET A HOLD OF PATIENT YESTERDAY SO SHE WAS GOING TO CALL HIS , MILIND. INFORMED HER APPPOINTMENT WAS ALSO MADE WITH DR. BOYLE IN 1-2 WEEKS AND IF SHE WAS CONCERNED ABOUT HIS DRESSING AND INCISION SITE GETTING DIRTY, THEY COULD ALSO CONTACT HIS CLINIC OR [facility] TO ASSESS THE DRESSING AND CHANGE IT IF NEEDED. DID INFORM HER WALKER WAS ORDERED AND SENT HOME WITH PATIENT AND IF HE'S CRAWLING ON THE GROUND, THAT IS ALSO HIS CHOICE BECAUSE HE WAS AMBULATING WITH A WALKER AND DOING WELL WITH PT/OT PRIOR TO DISCHARGE.
== END 2024-08-27 12:00 | disposition home or self-care (01) | DRG 854 ==
LOC: ED 08:03 → MS 10:36 → CCU 10:36 → MS 08-21 18:48
PROVIDERS: Emergency Medicine; Family Medicine; Specialist; Student in an Organized Health Care Education/Training Program; ADMIT Student in an Organized Health Care Education/Training Program; ATTEND Student in an Organized Health Care Education/Training Program
PROC: 3E03329 Introduction of Other Anti-infective into Peripheral Vein, Percutaneous Approach (ICD-10-PCS; 2024-08-19)
PROC: 0Y6J0Z1 Detachment at Left Lower Leg, High, Open Approach (ICD-10-PCS; principal; 2024-08-19 18:12)
PROC: 0QBH0ZZ Excision of Left Tibia, Open Approach (ICD-10-PCS; 2024-08-21 11:00)
DX: A41.9 Sepsis, unspecified organism (principal); E11.52 Type 2 diabetes mellitus with diabetic peripheral angiopathy with gangrene; L03.116 Cellulitis of left lower limb; N17.9 Acute kidney failure, unspecified; I48.91 Unspecified atrial fibrillation; E11.69 Type 2 diabetes mellitus with other specified complication; I25.10 Atherosclerotic heart disease of native coronary artery without angina pectoris; E11.22 Type 2 diabetes mellitus with diabetic chronic kidney disease; N18.9 Chronic kidney disease, unspecified; I12.9 Hypertensive chronic kidney disease with stage 1 through stage 4 chronic kidney disease, or unspecified chronic kidney disease; E87.6 Hypokalemia; R06.6 Hiccough; E78.5 Hyperlipidemia, unspecified; E11.42 Type 2 diabetes mellitus with diabetic polyneuropathy; E11.621 Type 2 diabetes mellitus with foot ulcer; L97.529 Non-pressure chronic ulcer of other part of left foot with unspecified severity; Z79.899 Other long term (current) drug therapy; Z87.891 Personal history of nicotine dependence; Z79.84 Long term (current) use of oral hypoglycemic drugs; Z79.4 Long term (current) use of insulin
CPT/HCPCS: 01232; 01462; 36415; 64445; 64447; 71045; 73630; 73723; 80048; 80053; 82565; 83036; 83605; 83735; 84439; 84443; 84484; 84520; 85025; 85060; 85651; 86140; 86850; 86900; 86901; 86922; 87040; 87077; 93005; 93010; 94760; 97110; 97116; 97162; 97166; 97530; 97535; A9270; A9579; J0330; J0692; J0735; J1100; J1160; J1720; J1815; J1885; J2003; J2250; J2405; J2704; J2765; J2795; J3010; J3480; J3490; J7030; J7060; J7121